=== PATIENT | female | born 1990 | race Caucasian/White ===

== ENCOUNTER 2018-05-15 23:23 | Emergency (ER) | payer OTHER ==
[~2018-05-15] VITALS: Ht 167.6 cm; Wt 77.1 kg
[2018-05-15] MEDS ORDERED: ALBUTEROL SULF 0.083% NEB SOLN 3 ML NEB NEB STA (23:41)
[2018-05-15] MEDS ORDERED: IPRATROPIUM BROMIDE 0.02% 2.5 ML NEB NEB ONE (23:45)
--- NOTE | 2018-05-16 00:52 | Diagnostic Imaging Report ---
CHEST 2 VIEWS, Technique: CHEST 2 VIEWS Comparison: None Clinical history: Cough DISCUSSION: Mild bilateral peribronchial cuffing/opacity. Otherwise normal appearance of the heart, mediastinum, and pleural spaces. IMPRESSION: Findings which can be seen with small airways disease/atypical/viral infection. Signed by: Dr Nubia Castro MD on 05/16/2018 12:49 AM
== END 2018-05-16 01:11 | disposition home or self-care (01) ==
LOC: ER 23:23
DX: R05 Cough (principal); R06.02 Shortness of breath; J20.9 Acute bronchitis, unspecified
CPT/HCPCS: 71046; 94640; 99283

== ENCOUNTER 2019-01-10 21:15 | Emergency (ER) | payer OTHER ==
[~2019-01-10] VITALS: Ht 167.6 cm; Wt 77.1 kg
--- OUTSIDE RECORDS SUMMARY | 2019-01-10 21:19 | XMS REPORT | Clinical Summary ---
Author Author [facility] [place] [employer] [facility] Address Unknown Phone Unavailable Care Team Providers Care Pc Support Specialist Name Role Phone PCP Unavailable Allergies No Known Allergies Medications End Date Status Medication Sig Dispensed Refills Start Date Active vitamin Take 1 tablet 0 w/qmaapys-qaif-zjiphn by mouth ( PLUS) 27 mg daily. iron- 1 mg Tab 11/13/2019 Active levothyroxine (SYNTHROID, Take 1 tablet 30 tablet 0 LEVOTHROID) 75 MCG tablet (75 mcg 9 total) by mouth daily. Active cholecalciferol, vitamin Take by 0 D3, 2,000 unit Cap mouth. Active clomiPHENE (CLOMID) 50 mg One- half 3 tablet 0 tablet tablet daily 9 x 3 days as directed. 08/13/2018 sertraline (ZOLOFT) 50 MG Take 1 tablet 30 tablet 1 tablet (50 mg total) 7 by mouth daily. 09/17/2018 Discontinued levothyroxine 25 mcg Cap Take 25 mcg 30 capsule 2 by mouth 8 daily. 10/15/2018 Discontinued levothyroxine (SYNTHROID, Take 1 tablet 30 tablet 1 LEVOTHROID) 50 MCG tablet (50 mcg 8 total) by mouth Every morning on an empty stomach. 11/13/2018 Discontinued levothyroxine (SYNTHROID, Take 1 tablet 30 tablet 1 LEVOTHROID) 75 MCG tablet (75 mcg 8 total) by mouth daily. 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 Resolved Problems Problem Noted Date Resolved Date Thyroid disorder 04/17/2016 12/18/2018 Overview: No current meds Encounters Care Team Description Date Type Specialty Parisa Rutledge MD Appointment 01/07/2019 Telephone Obstetrics and Parisa Ruelas MD Referral 12/30/2018 Telephone Obstetrics and Parisa Ruelas MD 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) 12/29/2018 Orders Only Obstetrics and Parisa Ruelas MD Disease of thyroid gland (Primary Dx); Low vitamin D level; Hormone disorder; Pauline's thyroiditis 12/18/2018 Office Visit Obstetrics and Parisa Ruelas MD Referral 11/20/2018 Telephone Obstetrics Parisa Rowland MD Advice Only 11/18/2018 Telephone Obstetrics and Parisa Ruelas MD Other fatigue (Primary Dx); Irregular menstrual cycle; History of irregular menstrual bleeding; Pauline's thyroiditis; Procreative counseling and advice using natural family planning; Other chronic back pain 11/16/2018 Office Visit Obstetrics Parisa Rowland MD 11/13/2018 Orders Only Obstetrics Parisa Rowland MD 11/12/2018 Refill Obstetrics Parisa Rowland MD 10/15/2018 Orders Only Obstetrics Parisa Rowland MD Thyroid disorder (Primary Dx); Pauline's thyroiditis 09/17/2018 Office Visit Obstetrics and Parisa Ruelas MD Advice Only 09/07/2018 Telephone Obstetrics and Gynecology Dinah Donato CMA 09/04/2018 Abstract Obstetrics Parisa Rowland MD 09/02/2018 Orders Only Obstetrics and Parisa Ruelas MD Advice Only 09/02/2018 Telephone Obstetrics Parisa Rowland MD Thyroid condition (Primary Dx) 09/02/2018 Orders Only Obstetrics and Parisa Ruelas MD 08/31/2018 Orders Only Obstetrics and Parisa Ruelas MD Thyroid disorder (Primary Dx); Well woman exam with routine gynecological exam 08/28/2018 Office Visit Obstetrics and Gynecology Leon Taylor MD Hematuria, unspecified type (Primary Dx) 08/18/2018 Office Visit Urology Leon Taylor MD Hematuria, unspecified type 08/18/2018 Hospital Encounter Leon Taylor MD 08/18/2018 Outside Orders after 01/09/2018 Immunizations Name Dates Previously Given Next Due Influenza TIV (IM) 07/05/2016 Tdap 09/13/2016 Family History Medical History Relation Name Comments Depression Father Breast cancer Maternal Aunt negative genetic testing Breast cancer Maternal Grandmother Heart disease Mother vsd Diabetes Paternal Aunt Diabetes Paternal Grandmother Relation Name Status Comments Father Alive Maternal Aunt Maternal Grandmother Mother Alive Paternal Aunt Paternal Grandmother Social History Date Tobacco Use Types Packs/Day Years Used Never Smoker Smokeless Tobacco: Never Used Alcohol Use Drinks/Week oz/Week Comments No Sex Assigned at Date Recorded Not on file Industry Job Start Date Occupation Not on file Not on file Not on file Travel End Travel History Travel Start No recent travel history available. Last Filed Vital Signs Time Taken Vital Sign Reading 12/18/2018 9:42 AM IT INFRASTRUCTURE ENGINEER Blood Pressure 125/84 12/18/2018 9:42 AM IT INFRASTRUCTURE ENGINEER Pulse 75 12/18/2018 9:42 AM IT INFRASTRUCTURE ENGINEER Temperature 36.8 C (98.2 F) 09/17/2018 9:58 AM IT INFRASTRUCTURE ENGINEER Respiratory Rate 18 - Oxygen Saturation - - Inhaled Oxygen - Concentration 12/18/2018 9:42 AM IT INFRASTRUCTURE ENGINEER Weight 78 kg (172 lb) 12/18/2018 9:42 AM IT INFRASTRUCTURE ENGINEER Height 165.1 cm (5' 5") 12/18/2018 9:42 AM IT INFRASTRUCTURE ENGINEER Body Mass Index 28.62 Plan of Treatment Care Team Description Date Type Specialty Tech, [facility] 01/12/2019 Office Visit Obstetrics and Gynecology Parisa Rutledge MD [address] [place] [address] [phone] 01/29/2019 Routine Obstetrics and Gynecology Procedures Comments Procedure Name Priority Date/Time Associated Diagnosis PROGESTERONE Routine 12/28/2018 9:16 AM IT INFRASTRUCTURE ENGINEER VITAMIN D, 25-HYDROXY Routine 12/18/2018 Low vitamin D level 10:23 AM IT INFRASTRUCTURE ENGINEER T3, FREE Routine 12/18/2018 Disease of thyroid gland 10:23 AM IT INFRASTRUCTURE ENGINEER T4, FREE Routine 12/18/2018 Disease of thyroid gland 10:23 AM IT INFRASTRUCTURE ENGINEER TSH Routine 12/18/2018 Disease of thyroid gland 10:23 AM IT INFRASTRUCTURE ENGINEER POCT , URINE Routine 11/16/2018 History of irregular 11:51 AM IT INFRASTRUCTURE ENGINEER menstrual bleeding DHEA SULFATE Routine 11/16/2018 Irregular menstrual cycle 11:47 AM IT INFRASTRUCTURE ENGINEER T4, FREE Routine 11/16/2018 Irregular menstrual cycle 11:47 AM IT INFRASTRUCTURE ENGINEER PROLACTIN Routine 11/16/2018 Irregular menstrual cycle 11:47 AM IT INFRASTRUCTURE ENGINEER VITAMIN D, 25-HYDROXY Routine 11/16/2018 Other fatigue 11:47 AM IT INFRASTRUCTURE ENGINEER CBC W/PLT COUNT & AUTO Routine 11/16/2018 Irregular menstrual cycle DIFFERENTIAL 11:47 AM IT INFRASTRUCTURE ENGINEER PROGESTERONE Routine 11/16/2018 Irregular menstrual cycle 11:47 AM IT INFRASTRUCTURE ENGINEER ANDROSTENEDIONE Routine 11/16/2018 Irregular menstrual cycle 11:47 AM IT INFRASTRUCTURE ENGINEER TESTOSTERONE, FREE + Routine 11/16/2018 Irregular menstrual cycle TOTAL 11:47 AM IT INFRASTRUCTURE ENGINEER TSH Routine 11/16/2018 Irregular menstrual cycle 11:47 AM IT INFRASTRUCTURE ENGINEER TSH Routine 10/14/2018 Thyroid disorder 10:16 AM IT INFRASTRUCTURE ENGINEER T4, FREE Routine 10/14/2018 Thyroid disorder 10:16 AM IT INFRASTRUCTURE ENGINEER SPECIMEN STATUS Routine 09/02/2018 10:49 AM CDT ANTI-THYROGLOBULIN Routine 09/02/2018 ANTIBODY 10:49 AM CDT THYROID PEROXIDASE (TPO) Routine 09/02/2018 ANTIBODY 10:49 AM CDT TSH Routine 08/31/[address]-NG RFX HPV ASCU AP Routine 08/28/2018 US RENAL COMPLETE STAT 08/18/2018 Hematuria, unspecified 2:30 PM CDT type after 01/09/2018 Results * PROGESTERONE (12/28/2018 9:16 AM IT INFRASTRUCTURE ENGINEER) Progesterone, Serum 1,590 ng/dL [facility] 1 Comment: Reference Range: Adult Females Cycle DaysRange 1 -6<10 - 17 7 - 12<10 - 135 13 - 15<10 - 1563 16 - 28<10 - 2555 Post Menopausal<10 Note: Luteal progesterone peaked from 350 to 3750 ng/dL on days ranging from 17 to 23. Narrative Performed At Performed at: - [employer] [facility] [address] [employer], [place] [id number] Head Teacher: Milan Bryant MD, Phone:[phone] Performing Organization Address City/State/Zipcode Phone Number [facility] * Vitamin D 25 hydroxy (12/18/2018 10:23 AM IT INFRASTRUCTURE ENGINEER) Only the most recent of 2 results within the time period is included. Vitamin D, 25-Hydroxy 26.3 (L) 30.0 - 100.0 ng/mL [facility] 1 Comment: Vitamin D deficiency has been defined by the [place] of Medicine and an Endocrine Society practice guideline as a level of serum 25-OH vitamin D less than 20 ng/mL (1,2). The Endocrine Society went on to further define vitamin D insufficiency as a level between 21 and 29 ng/mL (2). 1. IOM ([place] of Medicine). 2010. Dietary reference intakes for calcium and D. [place]: The National Academies Press. 2. Mariaelena MF, Sigrid [place], Milka ARAIZA, et al. Evaluation, treatment, and prevention of vitamin D deficiency: an Endocrine Society clinical practice guideline. JCEM. 2010; 96(7):1911-30. Specimen Blood Narrative Performed At Performed at: - [facility] [address] [place], [place] [id number] Head Teacher: James Olivarez MD, Phone:[phone] Performing Organization Address [facility] Phone Number [facility] * T3, free (12/18/2018 10:23 AM IT INFRASTRUCTURE ENGINEER) Triiodothyronine,Free,Ser 3.3 2.0 - 4.4 pg/mL [facility] 1 um Specimen Blood Narrative Performed At Performed at:[address] [place], [place] [id number] Head Teacher: James Olivarez MD, Phone:[phone] Performing Organization Address [facility] Phone Number [facility] 1 * TSH (12/18/2018 10:23 AM IT INFRASTRUCTURE ENGINEER) Only the most recent of 4 results within the time period is included. TSH 3.080 0.450 - 4.50 uIU/mL [facility] Specimen Blood Narrative Performed At Performed at:[address] [place], [place] [id number] Head Teacher: James Olivarez MD, Phone:[phone] Performing Organization Address [facility] Phone Number [facility] 1 * T4, free (12/18/2018 10:23 AM IT INFRASTRUCTURE ENGINEER) Only the most recent of 3 results within the time period is included. T4,Free(Direct) 1.64 0.82 - 1.77 ng/dL [facility] Thyroxine (T4) 9.9 4.5 - 12.0 ug/dL [facility] 1 Specimen Blood Narrative Performed At Performed at:[address] [place], [place] [id number] Head Teacher: James Olivarez MD, Phone:[phone] Performing Organization Address [facility] Phone Number [facility] * POCT , urine (11/16/2018 11:51 AM IT INFRASTRUCTURE ENGINEER) Test Urine, POC Negative Control line present?, Yes POC Background clear?, POC Yes UPT Cassette Lot #, POC [id number] UPT Cassette Expiration [id number] Date, POC * Prolactin (11/16/2018 11:47 AM IT INFRASTRUCTURE ENGINEER) Prolactin 13.3 4.8 - 23.3 ng/mL [facility] Specimen Blood Narrative Performed At Performed at:[address] [place], [place] [id number] Head Teacher: James Olivarez MD, Phone:[phone] Performing Organization Address [facility] Phone Number [facility] 1 * Progesterone (11/16/2018 11:47 AM IT INFRASTRUCTURE ENGINEER) Progesterone 0.5 ng/mL [facility] Comment: Follicular phase 0.1 - 0.9 Luteal phase 1.8 -23.9 Ovulation phase0.1 -12.0 First zccitcjax08.0 -44.3 Second trimester 25.4 -83.3 Third .7 - 214.0 Postmenopausal 0.0 - 0.1 Specimen Blood Narrative Performed At Performed at:[address] [place], [place] [id number] Head Teacher: James Olivarez MD, Phone:[phone] Performing Organization Address [facility] Phone Number [facility] 1 * DHEA Sulfate (11/16/2018 11:47 AM IT INFRASTRUCTURE ENGINEER) DHEA-Sulfate 272.9 84.8 - 378.0 ug/dL [facility] Specimen Blood Narrative Performed At Performed at:[address] [place], [place] [id number] Head Teacher: James Olivarez MD, Phone:[phone] Performing Organization Address [facility] Phone Number [facility] 1 * Androstenedione (11/16/2018 11:47 AM IT INFRASTRUCTURE ENGINEER) Androstenedione LCMS 123 41 - 262 ng/dL [facility] Comment: This test was developed and its performance characteristics determined by [facility]. It has not been cleared or approved by the Food and Drug Administration. Specimen Blood Narrative Performed At Performed at:[address] [place], [place] [address] [place], [id number] Head Teacher: Silas Orellana MD, Phone:[phone] Performing Organization Address [facility] Phone Number [facility] 1 * CBC W/ PLT COUNT AUTO DIFFERENTIAL (11/16/2018 11:47 AM IT INFRASTRUCTURE ENGINEER) WBC 6.7 3.4 - 10.8 x10E3/uL [facility] 1 RBC 4.84 3.77 - 5.28 x10E6/uL [facility] 1 Hemoglobin 14.8 11.1 - 15.9 g/dL [facility] 1 Hematocrit 43.1 34.0 - 46.6 % [facility] 1 MCV 89 79 - 97 fL [facility] 1 MCH 30.6 26.6 - 33.0 pg [facility] 1 MCHC 34.3 31.5 - 35.7 g/dL [facility] 1 RDW 13.1 12.3 - 15.4 % [facility] 1 Platelets 405 (H) 150 - 379 x10E3/uL [facility] 1 % Neutros 55 Not Estab. % [facility] 1 % Lymphs 34 Not Estab. % [facility] 1 % Monos 8 Not Estab. % [facility] 1 % Eos 2 Not Estab. % [facility] % Baso 1 Not Estab. % [facility] # Neutros 3.7 1.4 - 7.0 x10E3/uL [facility] # Lymphs 2.3 0.7 - 3.1 x10E3/uL [facility] 1 # Monos 0.6 0.1 - 0.9 x10E3/uL [facility] 1 # Eos 0.2 0.0 - 0.4 x10E3/uL [facility] 1 Baso (Absolute) 0.1 0.0 - 0.2 x10E3/uL [facility] 1 % Immature Grans 0 Not Estab. % [facility] 1 # Immature Grans 0.0 0.0 - 0.1 x10E3/uL [facility] 1 Specimen Blood Narrative Performed At Performed at:01 - [facility] [address] [place], [id number] Head Teacher: James Olivarez MD, Phone:[phone] Performing Organization Address City/State/Zipcode Phone Number [facility] 1 * Testosterone, free + total (11/16/2018 11:47 AM IT INFRASTRUCTURE ENGINEER) Testosterone, Serum 36 8 - 48 ng/dL [facility] 1 Free Testosterone(Direct) 1.4 0.0 - 4.2 pg/mL [facility] 2 Specimen Blood Narrative Performed At Performed at: [id number] Head Teacher: James Olivarez MD, Phone:[phone] Performed at: [id number] Head Teacher: Silas Orellana MD, Phone:[phone] Performing Organization Address [facility] Phone Number [facility] * SPECIMEN STATUS (09/02/2018 10:49 AM CDT) Specimen Status Comment [facility] 1 Comment: Written Authorization Written Authorization Written Authorization Received. Authorization received from PARISA RUTLEDGE 09-08-2018 Logged by Nirmala Bland Narrative Performed At Performed at:[address] [place], [place] [id number] Head Teacher: James Olivarez MD, Phone:[phone] Performing Organization Address [facility] Phone Number [facility] * Thyroid peroxidase (TPO) antibody (09/02/2018 10:49 AM CDT) Thyroid Peroxidase (TPO) 167 (H) 0 - 34 IU/mL [facility] 1 Ab Narrative Performed At Performed at:[address] [place], [place] [id number] Head Teacher: James Olivarez MD, Phone:[phone] Performing Organization Address [facility] Phone Number [facility] * Anti-thyroglobulin antibody (09/02/2018 10:49 AM CDT) Thyroglobulin Ab <1.0Comment: Thyroglobulin 0.0 - 0.9 IU/mL [facility] 1 Antibody measured by Leno Shweta Methodology Narrative Performed At Performed at:[address] [place], [place] [id number] Head Teacher: James Olivarez MD, Phone:[phone] Performing Organization Address [facility] Phone Number [facility] 1 * PAP IG CT-NG RFX HPV ASCU (08/28/2018) Pap Negative for intraephithelial EXTERNAL LAB lesion or malignancy Narrative Performed At Performing Organization Address City/State/Zipcode Phone Number EXTERNAL LAB * US renal complete (08/18/2018 2:30 PM CDT) Narrative Performed At FINAL REPORT [facility] History: Hematuria. FINDINGS: Correlation is made with patient's previous study performed September 08, 2016. Real-time sonographic examination reveals normal size kidneys measuring up to 10.6 x 4.3 x 5.1 and 11.6 x 4.6 x 5.3 cm in greatest dimensions on the right and left, respectively. Renal echogenicity appears normal. There are no sonographically detectable masses, cysts, stones or evidence for obstruction. Previously described mild bilateral hydronephrosis has resolved. Renal cortical thickness measures 10 mm on the right and 11 mm on the left. The urinary bladder is unremarkable with an estimated volume of 280 cc. IMPRESSION: 1. Normal renal sonogram. Bilateral hydronephrosis identified on the previous study performed September 2016 has resolved. Signed: Melisa Haro MD Report Verified Date/Time:08/18/2018 14:27:54 Reading Location: [facility] Radiology Reading Room Procedure Note Interface, External Ris In - 08/18/2018 2:55 PM CDT FINAL REPORT History: Hematuria. FINDINGS: Correlation is made with patient's previous study performed September 08, 2016. Real-time sonographic examination reveals normal size kidneys measuring up to 10.6 x 4.3 x 5.1 and 11.6 x 4.6 x 5.3 cm in greatest dimensions on the right and left, respectively. Renal echogenicity appears normal. There are no sonographically detectable masses, cysts, stones or evidence for obstruction. Previously described mild bilateral hydronephrosis has resolved. Renal cortical thickness measures 10 mm on the right and 11 mm on the left. The urinary bladder is unremarkable with an estimated volume of 280 cc. IMPRESSION: 1. Normal renal sonogram. Bilateral hydronephrosis identified on the previous study performed September 2016 has resolved. Signed: Melisa Haro MD Report Verified Date/Time: 08/18/2018 14:27:54 Reading Location: [facility] Radiology Reading Room Performing Organization Address City/State/Zipcode Phone Number GE RIS after 01/09/2018 Insurance Payer Benefit Subscriber ID Type Phone Address Plan / Group AETNA - [employer] AETNA HMO xxxxxxxxxx HMO/POS POS QPOS Advance Directives For more information, please contact: [facility] [address] [place] [address] Date Inactivated Comments Code Status Date Activated 12/02/2016 4:05 PM Full Code 11/29/2016 12:59 PM This code status was determined by: Patient 11/14/2016 7:13 PM Full Code 11/14/2016 1:42 PM This code status was determined by: Patient 11/10/2016 4:11 AM Full Code 11/10/2016 1:22 AM This code status was determined by: Patient 11/06/2016 7:47 PM Full Code 11/06/2016 4:26 PM This code status was determined by: Patient 09/09/2016 3:02 PM Full Code 09/08/2016 9:53 AM This code status was determined by: Patient
--- OUTSIDE RECORDS SUMMARY | 2019-01-10 21:19 | XMS REPORT ---
Author Author [facility] Address Unknown Phone Unavailable Care Team Providers Care Cable Tool Driller Name Role Phone JERED Sharron MORGAN Unavailable Unavailable Problems This patient has no known problems. Allergies, Adverse Reactions, Alerts This patient has no known allergies or adverse reactions. Medications This patient has no known medications. Results Test Description Test Time Test Comments Text Results Atomic Results Result Comments U/S, RENAL, COMPLETE 2018-08-18 14:27:00 [facility] for Exam:->history of hematuria FINAL REPORT History: Hematuria. FINDINGS: Correlation is [...] performed September 2016 has resolved. Signed: Melisa Mckeon Verified Date/Time: 08/18/2018 14:27:54 Reading Location: [facility] Radiology Reading Room T 2 VIEWS 2018-05-16 00:48:[address] [address] Patient Name: SUELLEN OVIEDO MR #: [id number] : 1990 Age/Sex: 28/F Req #: [id number] Adm Physician: Ordered by: CATHY LAWTON MD Report #: [id number] Location: ER Room/Bed: Procedure: [id number] DX/CHEST 2 VIEWS Exam Date: 05/16/18 Exam Time: 34 REPORT STATUS: Signed CHEST 2 VIEWS, Technique: CHEST 2 VIEWS Comparison: None Clinical history: Cough DISCUSSION: Mild bilateral peribronchial cuffing/opacity. Otherwise normal appearance of the heart, mediastinum, and pleural spaces. IMPRESSION: Findings which can be seen with small airways disease/atypical/viral infection. Signed by: Dr Judd Castro MD on 05/16/2018 12:49 AM Dictated By: JUDD CASTRO MD Transcribed By: KAYKAY on 05/16/1848 COPY TO: CATHY LAWTON MD
[2019-01-10 22:17] LABS: BASOPHILS # (AUTO) 0.1 (0.0-0.1); BASOPHILS % 0.8 % (0.0-1.0); EOSINOPHILS # (AUTO) 0.2 (0.0-0.4); EOSINOPHILS % 1.8 % (0.0-6.0); HEMATOCRIT 40.2 % (34.2-44.1); HEMOGLOBIN 13.5 g/dL (12.0-16.0); LYMPHOCYTES # (AUTO) 3.4 (1.0-3.2); LYMPHOCYTES % 41.2 % (18.0-39.1); MEAN CORPUSCULAR HEMOGLOBIN 30.1 pg (28-32); MEAN CORPUSCULAR HGB CONC 33.6 g/dL (31-35); MEAN CORPUSCULAR VOLUME 89.5 fL (81-99); MONOCYTES # (AUTO) 0.7 (0.2-0.8); MONOCYTES % 8.7 % (4.4-11.3); NEUTROPHILS # (AUTO) 3.9 (2.1-6.9); NEUTROPHILS % 47.3 % (38.7-80.0); PLATELET COUNT 456 x10e3/uL (140-360); RED BLOOD COUNT 4.49 x10e6/uL (3.6-5.1); RED CELL DISTRIBUTION WIDTH 12.1 % (11.7-14.4)
[2019-01-10 22:28] LABS: ALANINE AMINOTRANSFERASE 9 IU/L (0-55); ALBUMIN 3.9 g/dL (3.5-5.0); ALBUMIN/GLOBULIN RATIO 1.1 (0.8-2.0); ALKALINE PHOSPHATASE 64 IU/L (40-150); ANION GAP 12.1 mmol/L (8-16); BLOOD UREA NITROGEN 11 mg/dL (7-26); BUN/CREATININE RATIO 14 (6-25); CALCIUM 9.7 mg/dL (8.4-10.2); CARBON DIOXIDE 25 mmol/L (22-29); CHLORIDE 101 mmol/L (98-107); CREATININE, SERUM 0.78 mg/dL (0.57-1.11); EST GLOMERULAR FILTRATION RATE > 60 ML/MIN (60-); GLUCOSE 94 mg/dL (74-118); POTASSIUM 4.1 mmol/L (3.5-5.1); SODIUM 134 mmol/L (136-145)
[2019-01-10 23:27] LABS: BILIRUBIN,URINE NEGATIVE (NEGATIVE); CLARITY,URINE CLEAR (CLEAR); COLOR,URINE YELLOW (YELLOW); KETONES,URINE NEGATIVE (NEGATIVE); LEUKOCYTE ESTERASE ,URINE NEGATIVE (NEGATIVE); NITRITE,URINE NEGATIVE (NEGATIVE); PROTEIN,URINE DIPSTICK NEGATIVE (NEGATIVE); URINE UROBILINOGEN 0.2 mg/dL (0.2 - 1)
[2019-01-10 23:28] LABS: PREGNANCY TEST, URINE NEGATIVE (NEGATIVE)
[2019-01-10 23:52] LABS: BACTERIA,URINE FEW /HPF; EPITHELIAL CELLS,URINE FEW /LPF
--- NOTE | 2019-01-11 01:04 | Diagnostic Imaging Report ---
EXAM: CT Abdomen and Pelvis WITHOUT contrast INDICATION: R/O KIDNEY STONE COMPARISON: None. TECHNIQUE: Abdomen and pelvis were scanned utilizing a multidetector helical scanner from the lung base to the pubic symphysis without administration of IV contrast. Absence of intravenous contrast decreases sensitivity for detection of focal lesions and vascular pathology. Coronal and sagittal reformations were obtained. Routine protocol was performed. IV CONTRAST: None ORAL CONTRAST: Water COMPLICATIONS: None RADIATION DOSE: Total DLP: 367.9 mGy*cm Estimated effective dose: (DLP x 0.015 x size factor) mSv CTDIvol has been reviewed. It is below the limits set by the Radiation Protocol Committee (RPC). FINDINGS: LINES and TUBES: None. LOWER THORAX: Unremarkable HEPATOBILIARY: No focal hepatic lesions. No biliary ductal dilation. GALLBLADDER: Contracted. No radio-opaque stones or sludge. No wall thickening. SPLEEN: No splenomegaly. PANCREAS: No focal masses or ductal dilatation. ADRENALS: No adrenal nodules KIDNEYS/URETERS: No hydronephrosis. No cystic or solid mass lesions. No stones. GI TRACT: No abnormal distention, wall thickening, or evidence of bowel obstruction. Appendix is normal. PELVIC ORGANS/BLADDER: Left ovarian 4.2 cm cyst. Tampon in place. LYMPH NODES: No lymphadenopathy. VESSELS: Unremarkable. PERITONEUM / RETROPERITONEUM: No free air or fluid. BONES: Unremarkable. SOFT TISSUES: Unremarkable. IMPRESSION: 1. No acute noncontrast CT abnormalities. 2. No urolithiasis or hydronephrosis. Signed by: DR. Rodrigo Sanchez MD on 01/11/2019 12:58 AM
[2019-01-11 02:00] VITALS: BP 114/82
[2019-01-11] MEDS ORDERED: MACROBID 100 M100 MG PO (02:00)
== END 2019-01-11 02:06 | disposition home or self-care (01) ==
LOC: ER 21:15
DX: M54.5 Low back pain (principal); R35.0 Frequency of micturition; N30.91 Cystitis, unspecified with hematuria; J45.909 Unspecified asthma, uncomplicated; E07.9 Disorder of thyroid, unspecified
CPT/HCPCS: 36415; 74176; 80053; 81001; 81025; 85025; 87086; 93005; 99284

== ENCOUNTER 2019-03-07 11:27 | Emergency (ER) | payer OTHER ==
[~2019-03-07] VITALS: Ht 167.6 cm; Wt 77.1 kg
[~2019-03-07 11:27] MED LIST: MACROBID 100 M100 MG PO
--- OUTSIDE RECORDS SUMMARY | 2019-03-07 11:30 | XMS REPORT | Clinical Summary ---
Author Author [facility] Address Unknown Phone Unavailable Care Team Providers Care Bond Underwriter Name Role Phone PCP Unavailable Allergies No Known Allergies Medications End Date Status Medication Sig Dispensed Refills Start Date Active vitamin Take 1 tablet 0 w/ndqewxh-gagx-gtpunm by mouth ( PLUS) 27 mg daily. iron- 1 mg Tab Active cholecalciferol, vitamin Take by 0 D3, 2,000 unit Cap mouth. Active metFORMIN (GLUCOPHAGE-XR) 2 500 MG 24 hr tablet 9 Active levothyroxine (SYNTHROID, 2 LEVOTHROID) 100 MCG 9 tablet 03/13/2019 Active ibuprofen (ADVIL,MOTRIN) Take 1 tablet 40 tablet 0 800 MG tablet (800 mg 9 total) by mouth every 6 (six) hours as needed for Pain for up to 10 days. Active HYDROcodone-acetaminophen One po every 20 tablet 0 (NORCO 5-325) 5-325 mg 6 hours prn 9 per tablet pain. 08/13/2018 sertraline (ZOLOFT) 50 MG Take 1 [...] (75 mcg 8 total) by mouth daily. 01/11/2019 Discontinued levothyroxine (SYNTHROID, Take 1 tablet 30 tablet 0 LEVOTHROID) 75 MCG tablet (75 mcg 9 total) by mouth daily. 01/29/2019 Discontinued clomiPHENE (CLOMID) 50 mg One- half 3 tablet 0 tablet tablet daily 9 x 3 days as directed. 02/26/2019 Discontinued levothyroxine (SYNTHROID, TAKE 1 30 tablet 0 LEVOTHROID) 75 MCG tablet TABLET(75 9 MCG) BY MOUTH DAILY 02/16/2019 Discontinued progesterone (PROMETRIUM) Two po qhs x 20 capsule 3 200 MG capsule 10 days each 9 month as directed. 03/03/2019 Discontinued progesterone (PROMETRIUM) Two po qhs. 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 Comments Yes Resolved Problems Problem Noted Date Resolved Date Thyroid disorder 04/17/2016 12/18/2018 Overview: No current meds Encounters Care Team Description Date Type Specialty Parisa Rutledge MD Advice Only 03/05/2019 Telephone Obstetrics and Gynecology Parisa Rutledge MD Results 03/03/2019 Telephone Obstetrics and Gynecology Parisa Rutledge MD Advice Only 03/03/2019 Telephone Obstetrics and Gynecology Parisa Rutledge MD Appointment 03/03/2019 Telephone Obstetrics and Gynecology Joaquin Erazo MD 03/02/2019 Anesthesia Event Parisa Rutledge MD SALPINGECTOMY 03/02/2019 Surgery Holden Loaiza MD Karges, Kathryn Anne, MD Right ovarian without intrauterine (Primary Dx); Right tubal without intrauterine 03/02/2019 Emergency General Internal Medicine - 03/03/2019 Parisa Rutledge MD Right tubal without intrauterine (Primary Dx); Abnormal human chorionic gonadotropin (hCG) 03/02/2019 Office Visit Obstetrics and Gynecology 03/02/2019 Travel Parisa Rutledge MD Abnormal human chorionic gonadotropin (hCG) (Primary Dx) 03/02/2019 Outside Orders Central Scheduling Parisa Rutledge MD 03/01/2019 Routine Obstetrics and Gynecology Abnormal blood chemistry 02/26/2019 Hospital Encounter Parisa Rutledge MD Abnormal blood chemistry 02/26/2019 Hospital Encounter Parisa Rutledge MD 02/26/2019 Routine Obstetrics and Gynecology Parisa Rutledge MD Abnormal blood chemistry (Primary Dx) 02/26/2019 Outside Orders Parisa Rutledge MD Advice Only 02/19/2019 Telephone Obstetrics and Gynecology Parisa Rutledge MD Amenorrhea (Primary Dx) 02/17/2019 Orders Only Obstetrics and Gynecology Parisa Rutledge MD Vaginal Bleeding 02/17/2019 Telephone Obstetrics and Gynecology Parisa Rutledge MD Amenorrhea (Primary Dx); White coat syndrome with high blood pressure without hypertension; Pauline's thyroiditis; History of nephrolithiasis; History of irregular menstrual cycles 02/16/2019 Office Visit Obstetrics trudy Gynecology Parisa Rutledge MD 02/16/2019 Orders Only Obstetrics and Gynecology Parisa Rutledge MD New OB intake 02/15/2019 Telephone Obstetrics and Gynecology Bozena Hudson MD Cyst of ovary, unspecified laterality (Primary Dx) 02/04/2019 Office Visit Obstetrics and Gynecology Parisa Rutledge MD History of ovarian cyst (Primary Dx); Pauline's thyroiditis; History of irregular menstrual cycles 01/29/2019 Office Visit Obstetrics and Gynecology Parisa Rutledge MD Irregular periods/menstrual cycles (Primary Dx) 01/12/2019 Office Visit Obstetrics and Gynecology Parisa Rutledge MD Advice Only 01/12/2019 Telephone Obstetrics and Gynecology Parisa Rutledge MD 01/11/2019 Refill Obstetrics and Gynecology Parisa Rutledge MD Appointment 01/07/2019 Telephone Obstetrics and Gynecology Parisa Rutledge MD Referral 12/30/2018 Telephone Obstetrics and Gynecology Parisa Rutledge MD 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) 12/29/2018 Orders Only Obstetrics and Parisa Ruelas MD Disease of thyroid gland (Primary Dx); Low vitamin D level; Hormone disorder; Pauline's thyroiditis 12/18/2018 Office Visit Obstetrics and Parisa Ruelas MD Referral 11/20/2018 Telephone Obstetrics and Parisa Ruelas MD Advice Only 11/18/2018 Telephone Obstetrics and Parisa Ruelas MD Other fatigue (Primary Dx); Irregular menstrual cycle; History of irregular menstrual bleeding; Pauline's thyroiditis; Procreative counseling and advice using natural family planning; Other chronic back pain 11/16/2018 Office Visit Obstetrics and Parisa Ruelas MD 11/13/2018 Orders Only Obstetrics Parisa Rowland MD 11/12/2018 Refill Obstetrics Parisa Rowland MD 10/15/2018 Orders Only Obstetrics and Parisa Ruelas MD Thyroid disorder (Primary Dx); Pauline's thyroiditis; Ectopic , unspecified location, unspecified whether intrauterine present 09/17/2018 Office Visit Obstetrics and Parisa Ruelas MD Advice Only 09/07/2018 Telephone Obstetrics and Gynecology Dinah Donato CMA 09/04/2018 Abstract Obstetrics and Parisa Ruelas MD 09/02/2018 Orders Only Obstetrics and Parisa Ruelas MD Advice Only 09/02/2018 Telephone Obstetrics and Parisa Ruelas MD Thyroid condition (Primary Dx) 09/02/2018 Orders [...] Leon Taylor MD 08/18/2018 Outside Orders after 03/06/2018 Immunizations Name Dates Previously Given Next Due [...] Used Alcohol Use Drinks/Week oz/Week Comments No Comments Yes Sex Assigned at Date Recorded Not on file Industry Job Start Date Occupation Not on file Not on file Not on file Travel End Travel History Travel Start No recent travel history available. Last Filed Vital Signs Time Taken Vital Sign Reading 03/03/2019 4:11 AM CDT Blood Pressure 105/63 03/03/2019 4:11 AM CDT Pulse 100 03/03/2019 4:11 AM CDT Temperature 37.2 C (98.9 F) 03/03/2019 4:11 AM CDT Respiratory Rate 18 03/03/2019 4:11 AM CDT Oxygen Saturation 99% - Inhaled Oxygen - Concentration 03/02/2019 6:28 PM CDT Weight 77.1 kg (170 lb) 03/02/2019 6:28 PM CDT Height 165.1 cm (5' 5") 03/02/2019 6:28 PM CDT Body Mass Index 28.29 Plan of Treatment Care Team Description Date Type Specialty Parisa Rutledge MD [address] [facility] [address] [place] [address] [phone] Amenorrhea 03/12/2019 Office Visit Obstetrics and Gynecology Parisa Rutledge MD [address] [facility] [address] [place] [address] [phone] 03/18/2019 Office Visit Obstetrics and Gynecology Procedures Comments Procedure Name Priority Date/Time Associated Diagnosis HCG, QUANTITATIVE, Routine 03/05/2019 Ectopic , 1:08 PM CDT unspecified location, unspecified whether intrauterine present TRANSFUSION SERVICE 03/04/2019 REPORT - SCAN 6:05 PM CDT TRANSFUSION SERVICE 03/03/2019 REPORT - SCAN 6:07 PM CDT ANTIBODY IDENTIFICATION STAT 03/03/2019 5:00 PM CDT TISSUE EXAM AP Routine 03/02/2019 8:41 PM CDT SALPINGECTOMY 03/02/2019 Ectopic , 7:00 PM CDT unspecified location, unspecified whether intrauterine present Special Needs IN ERASSIST CONFIRMED WITH [facility],OPERATIVE 03/02/2019 Ectopic , 7:00 PM CDT unspecified location, unspecified whether intrauterine present Special Needs IN [place]SI[place] CONFIRMED WITH [facility],ECTOPIC 03/02/2019 Ectopic , REMOVAL 7:00 PM CDT unspecified location, unspecified whether intrauterine present Special Needs IN [place]SIST CONFIRMED WITH [facility] CBC W/PLT COUNT & AUTO STAT 03/02/2019 DIFFERENTIAL 6:49 PM CDT ABORH, MANUAL STAT 03/02/2019 6:49 PM CDT TYPE AND SCREEN, STAT 03/02/2019 AUTOMATED 6:49 PM CDT BASIC METABOLIC PANEL (7) STAT 03/02/2019 6:49 PM CDT CBC W/PLT COUNT & AUTO STAT 03/02/2019 DIFFERENTIAL 6:49 PM CDT US OB TRANSVAGINAL Routine 03/02/2019 Right tubal 4:35 PM CDT without intrauterine US OB TRANSVAGINAL Routine 03/01/2019 , location 4:48 PM CDT unknown Abnormal human chorionic gonadotropin (hCG) HCG, QUANTITATIVE, STAT 03/01/2019 , location 10:59 AM CDT unknown US OB TRANSVAGINAL Routine 02/26/2019 Amenorrhea 1:07 PM CDT Abnormal human chorionic gonadotropin (hCG) HCG, QUANTITATIVE, STAT 02/26/2019 Amenorrhea 12:24 PM CDT Abnormal human chorionic gonadotropin (hCG) US ENDOVAGINAL EV Routine 02/26/2019 12:00 PM CDT US FIRST Routine 02/26/2019 Abnormal blood chemistry TRIMESTER 12:00 PM CDT HCG, QUANTITATIVE, Routine 02/24/2019 Amenorrhea 9:30 AM CDT HCG, QUANTITATIVE, Routine 02/22/2019 Amenorrhea 9:56 AM CDT HCG, QUANTITATIVE, Routine 02/18/2019 Amenorrhea 8:42 AM CDT HCG, QUANTITATIVE, Routine 02/16/2019 Amenorrhea 1:34 PM CDT PROGESTERONE Routine 02/16/2019 Amenorrhea 1:34 PM CDT T4, FREE Routine 02/16/2019 Amenorrhea 1:34 PM CDT TSH Routine 02/16/2019 Amenorrhea 1:34 PM CDT POCT AMB URINE DIPSTICK Routine 02/16/2019 Amenorrhea 11:59 AM CDT POCT , URINE Routine 02/16/2019 Amenorrhea 11:52 AM CDT US PELVIC BLADDER ONLY Routine 02/05/2019 Cyst of ovary, 10:12 AM CDT unspecified laterality US PELVIC BLADDER ONLY Routine 01/29/2019 History of ovarian cyst 12:41 PM CDT US PELVIC BLADDER ONLY Routine 01/12/2019 Irregular 4:24 PM CDT periods/menstrual cycles PROGESTERONE Routine 12/28/2018 9:16 AM TRANSCRIPTION TYPIST VITAMIN D, 25-HYDROXY Routine 12/18/2018 Low vitamin D level 10:23 AM TRANSCRIPTION TYPIST T3, FREE Routine 12/18/2018 Disease of thyroid gland 10:23 AM TRANSCRIPTION TYPIST T4, FREE Routine 12/18/2018 Disease of thyroid gland 10:23 AM TRANSCRIPTION TYPIST TSH Routine 12/18/2018 Disease of thyroid gland 10:23 AM TRANSCRIPTION TYPIST POCT , URINE Routine 11/16/2018 History of irregular 11:51 AM TRANSCRIPTION TYPIST menstrual bleeding DHEA SULFATE Routine 11/16/2018 Irregular menstrual cycle 11:47 AM TRANSCRIPTION TYPIST T4, FREE Routine 11/16/2018 Irregular menstrual cycle 11:47 AM TRANSCRIPTION TYPIST PROLACTIN Routine 11/16/2018 Irregular menstrual cycle 11:47 AM TRANSCRIPTION TYPIST VITAMIN D, 25-HYDROXY Routine 11/16/2018 Other fatigue 11:47 AM TRANSCRIPTION TYPIST CBC W/PLT COUNT & AUTO Routine 11/16/2018 Irregular menstrual cycle DIFFERENTIAL 11:47 AM TRANSCRIPTION TYPIST PROGESTERONE Routine 11/16/2018 Irregular menstrual cycle 11:47 AM TRANSCRIPTION TYPIST ANDROSTENEDIONE Routine 11/16/2018 Irregular menstrual cycle 11:47 AM TRANSCRIPTION TYPIST TESTOSTERONE, FREE + Routine 11/16/2018 Irregular menstrual cycle TOTAL 11:47 AM TRANSCRIPTION TYPIST TSH Routine 11/16/2018 Irregular menstrual cycle 11:47 AM TRANSCRIPTION TYPIST TSH Routine 10/14/2018 Thyroid disorder 10:16 AM TRANSCRIPTION TYPIST T4, FREE Routine 10/14/2018 Thyroid disorder 10:16 AM TRANSCRIPTION TYPIST SPECIMEN STATUS Routine 09/02/2018 10:49 AM CDT ANTI-THYROGLOBULIN Routine 09/02/2018 ANTIBODY 10:49 AM CDT THYROID PEROXIDASE (TPO) Routine 09/02/2018 ANTIBODY 10:49 AM CDT TSH Routine 08/31/[address]-NG RFX HPV ASCU AP Routine 08/28/2018 US RENAL COMPLETE STAT 08/18/2018 Hematuria, unspecified 2:30 PM CDT type after 03/06/2018 Results * hCG, quantitative, (03/05/2019 1:08 PM CDT) Only the most recent of 7 results within the time period is included. hCG,Beta 425 mIU/mL [facility] 1 Subunit,Qnt,Serum Comment: Female (Non-)0 - 5 (Pos tmenopausal)0 - 8 Female () Weeks of Gestation 3 6 -71 4 10 - 750 52 17 7145 61 58 - 53959 7 [phone] -[phone] 10 92248 -[phone] 12 63256 -[phone] 14 68066 - 39820 15 18187 - 18653 16 4253 - 58953 17 8517 - 42222 18 8694 - [phone] Naz ECLIA methodology Specimen Blood Narrative Performed At Performed at: - [facility] [address] [place], [place] [id number] Investment Associate: James Olivarez MD, Phone:[phone] Performing Organization Address City/State/Zipcode Phone Number [facility] * TRANSFUSION SERVICE REPORT - SCAN (03/04/2019 6:05 PM CDT) Only the most recent of 2 results within the time period is included. Narrative Performed At * Antibody identification (03/03/2019 5:00 PM CDT) ANTIBODY ID (SYLVIA) Anti-Bg [place] Anti-E Comment: Testing performed by: [facility], [address] [place] [id number] Antibody Consult SIGNED OUTComment: Anti E [place] causes RBC injury, transfuse E negative RBCs. History of anti-Bg.Electronic Signature: Mony Zavala M.D. Specimen Performing Organization Address City/[facility] Phone Number [place] * Tissue Exam (03/02/2019 8:41 PM CDT) Case Report Surgical Pathology [place] Report LABORATORY Case: [id number] Authorizing Provider:Parisa Rutledge MD Collected: 03/02/20192040 Ordering Location: [facility] PERIOPERATIVE Received: 03/03/2019 0829 SERVICES Pathologist: Abhinav Brewer MD Specimen:RT Fallopian Tube, Right Fallopian Tube DIAGNOSIS RIGHT FALLOPIAN TUBE, [place] EXCISION: LABORATORY - ECTOPIC Signing Pathologist Direct Phone Line: [phone] CPT Code(s) SQ/ew [place] [address] LABORATORY CLINICAL HISTORY Ectopic [place] [facility] SPECIMEN SOURCE Right fallopian tube [place] [facility] GROSS DESCRIPTION Received in formalin [place] designated "right fallopian LABORATORY tube" is a light-loaiza fallopian tube segment measuring 2 cm in length and 0.7 cm in width along with two pieces of loaiza-red soft tissue measuring 1.3 x 0.7 x 0.3 cm in aggregate. Upon sectioning, a lumen is identified with no significant hemorrhage or dilatation. The entire specimen is sectioned and submitted in cassettes A1 and A2. SQ/ew MICROSCOPIC DESCRIPTION Sections from the fallopian [place] [facility] tube reveal a lumen lined by LABORATORY tubal type epithelium. Detached pieces of chorionic villi are identified mixed with blood clots. Features of malignancy are not identified. SQ/ew Specimen Tissue Narrative Performed At Performing Organization Address City/[facility]/Zipcode Phone Number [place] [facility] [place] [address] * Type and screen, automated (03/02/2019 6:49 PM CDT) ABOR O POSITIVE [facility] Antibody Screen POSITIVE [facility] Specimen Blood Performing Organization Address City/[facility] Hospitalcode Phone Number [place] [phone] [place] [address] HOSPITAL * ABORH, manual (03/02/2019 6:49 PM CDT) ABO Grouping OComment: Testing performed [facility] by: [facility], [address] [place] [id number] Rh Factor POSComment: Testing performed [facility] by: [facility], [address] [place] [id number] Specimen Blood Performing Organization Address City/[facility] Hospitalcode Phone Number [address] [place] [address] [facility] * CBC with platelet count + automated diff (03/02/2019 6:49 PM CDT) WBC 11.1 (H) 4.0 - 10.0 K/L [place] [facility] LABORATORY RBC 4.58 4.00 - 5.00 M/L [place] [facility] LABORATORY Hemoglobin 13.5 12.0 - 15.5 GM/DL [place] [facility] LABORATORY Hematocrit 40.6 36.0 - 46.0 % [place] [facility] LABORATORY MCV 88.6 82.0 - 99.0 fL [place] [facility] LABORATORY MCH 29.5 27.0 - 33.0 pg [place] [facility] LABORATORY MCHC 33.3 32.0 - 36.0 GM/DL [place] [facility] LABORATORY RDW 12.2 12.0 - 15.0 % [place] [facility] LABORATORY Platelets 383 150 - 430 K/CU MM [place] [facility] LABORATORY MPV 9.3 6.0 - 11.5 fL [place] [facility]ORAT[facility] % Neutros 69 % [place] [facility] % Lymphs 22 % [place] [facility] LABORATORY % Monos 7Comment: This is a corrected % [place] result. Previous result was LABORATORY 734 % on 03/02/2019 at 1905 CDT % Eos 1 % [place] [facility] LABORATORY % Baso 1 % [place] [facility] LAB[facility]AT[facility] # Neutros 7.60 1.80 - 8.00 K/L [place] [facility] # Lymphs 2.46 1.48 - 4.50 K/L [place] [facility] # Monos 0.82 0.00 - 1.30 K/L [place] [facility] # Eos 0.10 0.00 - 0.50 K/L [place] [facility] # Baso 0.07 0.00 - 0.20 K/L [place] [facility] Specimen Blood Performing Organization Address City/State/Zipcode Phone Number [place] [facility] [address] [place] [address] * Basic metabolic panel (Na, K+, Cl, CO2, Glu, Ca, BUN, Cr) (03/02/2019 6:49 PM CDT) Sodium 138 135 - 148 meq/L [place] [facility] Potassium 4.3Comment: Specimen 3.6 - 5.5 meq/L [facility] moderately hemolyzed LABORATORY Chloride 103 98 - 106 meq/L [place] [facility] CO2 20 20 - 29 meq/L [place] [facility] BUN 7 (L) 10 - 26 mg/dL [place] [facility] LABORATORY Creatinine 0.79Comment: Specimen 0.50 - 1.20 mg/dL [place] moderately hemolyzed LABORATORY Glucose 88 70 - 110 mg/dL [place] [facility] LABORATORY Calcium 9.1 8.5 - 10.5 mg/dL [place] [facility] LABORATORY EGFR 87Comment: ESTIMATED GFR IS mL/min/1.73 sq m [place] NOT ACCURATE CREATININE LABORATORY CLEARANCE IN PREDICTING GLOMERULAR FILTRATION RATE. ESTIMATED GFR IS NOT APPLICABLE FOR DIALYSIS PATIENTS. Specimen Blood Performing Organization Address City/State/Zipcode Phone Number [place] [facility] [address] [place] [address] * TVP - OB transvaginal Ultrasound (03/02/2019 4:35 PM CDT) Only the most recent of 3 results within the time period is included. Biparietal Diameter mm Abdominal Circumference mm Femoral Diameter cm Head Circumference mm HC/AC Estimated Weight grams Narrative Performed At [facility] 1992 03/02/19 Right ovary appears to have a corpus luteal cyst. Adjacent to the right ovary there is a well circumscribed mass seen. Yolk sac and CRL within. Crl: 4.5mm Yolk sac: 2.7 mm Fht: 113 bpm * US First Trimester (02/26/2019 12:00 PM CDT) Specimen Narrative Performed At FINAL REPORT [facility] Pelvis ultrasound, Clinical History: Positive test, 6 weeks by date Discussion: Sonographic evaluation of the pelvis is performed transabdominally and transvaginally. Jimenes scale, color Doppler, spectral wave form analysis of the ovarian vasculature was performed. The uterus is 8.0 x 4.7 x 5.1 cm and demonstrates homogeneous echotexture, without focal mass. The endometrial echocomplex is thickened and somewhat heterogeneous, measuring up to 2 cm. A small cystic collection is identified in the fundal region of the endometrial cavity. This does not have the appearance of a normal gestational sac. It measures about 0.7 x 0.3 x 1.2 cm. This could represent a deformed gestational sac or small amount of nonspecific fluid. There is no pole or yolk sac within this structure. The right ovary measures 4.5 x 2.1 x 4.5 cm. There is a cystic structure inseparable from the right ovary measuring about 2.3 x 1.4 x 1.6 cm. There is no pole or yolk sac within this structure. There is small amount of debris. There appears to be ovarian tissue surrounding this structure. Overall this is more suggestive of a complex corpus gluteal cyst rather than an ectopic . The right ovary demonstrates normal arterial and venous flow. The left ovary measures 3.1 x 1.8 x 2.0 cm and appears normal with follicles as expected. It demonstrates normal arterial and venous flow. Small amount of free fluid is identified in the area scanned. These findings were discussed with Dr. Rutledge shortly after the ultrasound was obtained. IMPRESSION: 1. No definite viable intrauterine is identified at this time. Cystic collection in endometrial cavity may represent small amount of nonspecific fluid, or possibly deformed gestational sac. No pole or yolk sac within this collection. 2. No definite adnexal mass to suggest ectopic . The cystic structure inseparable from the right ovary is more suggestive of corpus luteal cyst rather than ectopic . Overall constellation of findings is concerning for nonviable , but given the early estimated gestational age findings could still represent a viable early and/or early ectopic . Correlation clinically and with serial beta-hCG levels is recommended. Repeat ultrasound may be obtained, as clinically indicated. Signed: Bogdan Mcclellan MD Report Verified Date/Time:02/26/2019 13:05:32 Reading Location: [facility] Radiology Reading Room Procedure Note Interface, External Ris In - 02/26/2019 1:07 PM CDT FINAL REPORT Pelvis ultrasound, Clinical History: Positive test, 6 weeks by date Discussion: Sonographic evaluation of the pelvis is performed transabdominally and transvaginally. Jimenes scale, color Doppler, spectral wave form analysis of the ovarian vasculature was performed. The uterus is 8.0 x 4.7 x 5.1 cm and demonstrates homogeneous echotexture, without focal mass. The endometrial echocomplex is thickened and somewhat heterogeneous, measuring up to 2 cm. A small cystic collection is identified in the fundal region of the endometrial cavity. This does not have the appearance of a normal gestational sac. It measures about 0.7 x 0.3 x 1.2 cm. This could represent a deformed gestational sac or small amount of nonspecific fluid. There is no pole or yolk sac within this structure. The right ovary measures 4.5 x 2.1 x 4.5 cm. There is a cystic structure inseparable from the right ovary measuring about 2.3 x 1.4 x 1.6 cm. There is no pole or yolk sac within this structure. There is small amount of debris. There appears to be ovarian tissue surrounding this structure. Overall this is more suggestive of a complex corpus gluteal cyst rather than an ectopic . The right ovary demonstrates normal arterial and venous flow. The left ovary measures 3.1 x 1.8 x 2.0 cm and appears normal with follicles as expected. It demonstrates normal arterial and venous flow. Small amount of free fluid is identified in the area scanned. These findings were discussed with Dr. Rutledge shortly after the ultrasound was obtained. IMPRESSION: 1. No definite viable intrauterine is identified at this time. Cystic collection in endometrial cavity may represent small amount of nonspecific fluid, or possibly deformed gestational sac. No pole or yolk sac within this collection. 2. No definite adnexal mass to suggest ectopic . The cystic structure inseparable from the right ovary is more suggestive of corpus luteal cyst rather than ectopic . Overall constellation of findings is concerning for nonviable , but given the early estimated gestational age findings could still represent a viable early and/or early ectopic . Correlation clinically and with serial beta-hCG levels is recommended. Repeat ultrasound may be obtained, as clinically indicated. Signed: Bogdan Mcclellan MD Report Verified Date/Time: 02/26/2019 13:05:32 Reading Location: [facility] Radiology Reading Room Performing Organization Address City/State/Zipcode Phone Number [employer] * US Endovaginal (02/26/2019 12:00 PM CDT) Specimen Narrative Performed At FINAL REPORT [employer] Pelvis ultrasound, Clinical History: Positive test, 6 weeks by date Discussion: Sonographic evaluation of the pelvis is performed transabdominally and transvaginally. Jimenes scale, color Doppler, spectral wave form analysis of the ovarian vasculature was performed. The uterus is 8.0 x 4.7 x 5.1 cm and demonstrates homogeneous echotexture, without focal mass. The endometrial echocomplex is thickened and somewhat heterogeneous, measuring up to 2 cm. A small cystic collection is identified in the fundal region of the endometrial cavity. This does not have the appearance of a normal gestational sac. It measures about 0.7 x 0.3 x 1.2 cm. This could represent a deformed gestational sac or small amount of nonspecific fluid. There is no pole or yolk sac within this structure. The right ovary measures 4.5 x 2.1 x 4.5 cm. There is a cystic structure inseparable from the right ovary measuring about 2.3 x 1.4 x 1.6 cm. There is no pole or yolk sac within this structure. There is small amount of debris. There appears to be ovarian tissue surrounding this structure. Overall this is more suggestive of a complex corpus gluteal cyst rather than an ectopic . The right ovary demonstrates normal arterial and venous flow. The left ovary measures 3.1 x 1.8 x 2.0 cm and appears normal with follicles as expected. It demonstrates normal arterial and venous flow. Small amount of free fluid is identified in the area scanned. These findings were discussed with Dr. Rutledge shortly after the ultrasound was obtained. IMPRESSION: 1. No definite viable intrauterine is identified at this time. Cystic collection in endometrial cavity may represent small amount of nonspecific fluid, or possibly deformed gestational sac. No pole or yolk sac within this collection. 2. No definite adnexal mass to suggest ectopic . The cystic structure inseparable from the right ovary is more suggestive of corpus luteal cyst rather than ectopic . Overall constellation of findings is concerning for nonviable , but given the early estimated gestational age findings could still represent a viable early and/or early ectopic . Correlation clinically and with serial beta-hCG levels is recommended. Repeat ultrasound may be obtained, as clinically indicated. Signed: Bogdan Mcclellan MD Report Verified Date/Time:02/26/2019 13:05:32 Reading Location: [facility] Radiology Reading Room Procedure Note Interface, External Ris In - 02/26/2019 1:07 PM CDT FINAL REPORT Pelvis ultrasound, Clinical History: Positive test, 6 weeks by date Discussion: Sonographic evaluation of the pelvis is performed transabdominally and transvaginally. Jimenes scale, color Doppler, spectral wave form analysis of the ovarian vasculature was performed. The uterus is 8.0 x 4.7 x 5.1 cm and demonstrates homogeneous echotexture, without focal mass. The endometrial echocomplex is thickened and somewhat heterogeneous, measuring up to 2 cm. A small cystic collection is identified in the fundal region of the endometrial cavity. This does not have the appearance of a normal gestational sac. It measures about 0.7 x 0.3 x 1.2 cm. This could represent a deformed gestational sac or small amount of nonspecific fluid. There is no pole or yolk sac within this structure. The right ovary measures 4.5 x 2.1 x 4.5 cm. There is a cystic structure inseparable from the right ovary measuring about 2.3 x 1.4 x 1.6 cm. There is no pole or yolk sac within this structure. There is small amount of debris. There appears to be ovarian tissue surrounding this structure. Overall this is more suggestive of a complex corpus gluteal cyst rather than an ectopic . The right ovary demonstrates normal arterial and venous flow. The left ovary measures 3.1 x 1.8 x 2.0 cm and appears normal with follicles as expected. It demonstrates normal arterial and venous flow. Small amount of free fluid is identified in the area scanned. These findings were discussed with Dr. Rutledge shortly after the ultrasound was obtained. IMPRESSION: 1. No definite viable intrauterine is identified at this time. Cystic collection in endometrial cavity may represent small amount of nonspecific fluid, or possibly deformed gestational sac. No pole or yolk sac within this collection. 2. No definite adnexal mass to suggest ectopic . The cystic structure inseparable from the right ovary is more suggestive of corpus luteal cyst rather than ectopic . Overall constellation of findings is concerning for nonviable , but given the early estimated gestational age findings could still represent a viable early and/or early ectopic . Correlation clinically and with serial beta-hCG levels is recommended. Repeat ultrasound may be obtained, as clinically indicated. Signed: Bogdan Mcclellan MD Report Verified Date/Time: 02/26/2019 13:05:32 Reading Location: [facility] Radiology Reading Room Performing Organization Address City/State/Zipcode Phone Number GE RIS * Progesterone (02/16/2019 1:34 PM CDT) Only the most recent of 2 results within the time period is included. Progesterone 18.3 ng/mL [facility] 1 Comment: Follicular phase 0.1 - 0.9 Luteal phase 1.8 -23.9 Ovulation phase0.1 -12.0 First dyjgpcdgv94.0 -44.3 Second trimester 25.4 -83.3 Third sebckvrtr48.7 - 214.0 Postmenopausal 0.0 - 0.1 Specimen Blood Narrative Performed At Performed at:[address] [place] [id number] Investment Associate: James Olivarez MD, Phone:[phone] Performing Organization Address [facility] Phone Number [facility] * TSH (02/16/2019 1:34 PM CDT) Only the most recent of 5 results within the time period is included. TSH 3.510 0.450 - 4.50 uIU/mL [facility] 1 Specimen Blood Narrative Performed At Specimen Comment: A courtesy copy of this report has been sent to [facility] Specimen Comment: [facility]. Performed at:[address] [place], [place] [id number] Investment Associate: James Olivarez MD, Phone:[phone] Performing Organization Address [facility] Phone Number [facility] * T4, free (02/16/2019 1:34 PM CDT) Only the most recent of 4 results within the time period is included. T4,Free(Direct) 1.78 (H) 0.82 - 1.77 ng/dL [facility] 1 Thyroxine (T4) 11.1 4.5 - 12.0 ug/dL [facility] 1 Specimen Blood Narrative Performed At Specimen Comment: A courtesy copy of this report has been sent to [facility] Specimen Comment: [facility]. Performed at:[address] [place], [place] [id number] Investment Associate: James Olivarez MD, Phone:[phone] Performing Organization Address City/State/Zipcode Phone Number [facility] * POCT OB Urine Dipstick (02/16/2019 11:59 AM CDT) Color, UA Yellow Light Yellow, Yellow Clarity, UA Clear Clear Glucose Urine, POC Negative Negative Bilirubin Urine, POC Negative Negative Ketones Urine, POC Negative Negative Specific [place] Urine, 1.010 SG Ratio 1.005 SG Ratio, 1.010 SG POC Ratio, 1.015 SG Ratio, 1.020 SG Ratio, 1.025 SG Ratio, 1.030 SG Ratio Blood Urine, POC Negative Negative pH Urine, POC 7.0 pH units 5.0 pH units, 5.5 pH units, 6.0 pH units, 6.5 pH units, 7.0 pH units, 7.5 pH units, 8.0 pH units Protein Urine, POC Negative Negative Urobilinogen Urine, POC 0.2 mg/dL 0.2 mg/dL, 1 mg/dL Leukocyte Esterase Urine, Negative Negative POC Nitrite Urine, POC Negative Negative Specimen * POCT , urine (02/16/2019 11:52 AM CDT) Only the most recent of 2 results within the time period is included. Test Urine, POC Positive Control line present?, Yes POC Background clear?, POC Yes UPT Cassette Lot #, POC [id number] UPT Cassette Expiration [id number] Date, POC Specimen * TVP Follow-Up (02/05/2019 10:12 AM CDT) Only the most recent of 3 results within the time period is included. Narrative Performed At [facility] FOLLICLE ULTRASOUND REPORT Date performed: 02/04/19 LMP:01/08/19 Chart day: Endometrium: 1.2 cm Right ovary : 4.1 x 2.6 x 2.9 cm #1: corpus #2: Left ovary: 2.9 x 2.2 x 2.2 cm #1: #2: Comments: * PROGESTERONE (12/28/2018 9:16 AM TRANSCRIPTION TYPIST) Progesterone, Serum 1,590 ng/dL [facility] Comment: Reference Range: Adult Females Cycle DaysRange 1 -6<10 - 17 7 - 12<10 - 135 13 - 15<10 - 1563 16 - 28<10 - 2555 Post Menopausal<10 Note: Luteal progesterone peaked from 350 to 3750 ng/dL on days ranging from 17 to 23. Specimen Narrative Performed At Performed at: - [facility] [address] [place], [place] [id number] Investment Associate: Milan Bryant MD, Phone:[phone] Performing Organization Address [facility] Phone Number [facility] * Vitamin D 25 hydroxy (12/18/2018 10:23 AM TRANSCRIPTION TYPIST) Only the most recent of 2 results within the time period is included. Vitamin D, 25-Hydroxy 26.3 (L) 30.0 - 100.0 ng/mL [facility] 1 Comment: Vitamin D deficiency has been defined by the [place] of Medicine and an Endocrine Society practice guideline as a level of serum 25-OH vitamin D less than 20 ng/mL (1,2). The Endocrine Society went on to further define vitamin D insufficiency as a level between 21 and 29 ng/mL (2). 1. IOM ([place] of Medicine). 2010. Dietary reference intakes for calcium and D. [place]: The National Academies Press. 2. Mariaelena MF, Sigrid OAKLEY, Milka ARAIZA, et al. Evaluation, treatment, and prevention of vitamin D deficiency: an Endocrine Society clinical practice guideline. JCEM. 2010; 96(7):1911-30. Specimen Blood Narrative Performed At Performed at: [facility] [employer] [place], [place] [id number] Investment Associate: James Olivarez MD, Phone:[phone] Performing Organization Address [facility] Phone Number [facility] 1 * T3, free (12/18/2018 10:23 AM TRANSCRIPTION TYPIST) Triiodothyronine,Free,Ser 3.3 2.0 - 4.4 pg/mL [facility] 1 um Specimen Blood Narrative Performed At Performed at: [facility] [address] [place], [place] [id number] Investment Associate: James Olivarez MD, Phone:[phone] Performing Organization Address [facility] Phone Number [facility] * Prolactin (11/16/2018 11:47 AM TRANSCRIPTION TYPIST) Prolactin 13.3 4.8 - 23.3 ng/mL [facility] 1 Specimen Blood Narrative Performed At Performed at: - [id number] Investment Associate: James Olivarez MD, Phone:[phone] Performing Organization Address [facility] Phone Number [facility] 1 * DHEA Sulfate (11/16/2018 11:47 AM TRANSCRIPTION TYPIST) DHEA-Sulfate 272.9 84.8 - 378.0 ug/dL [facility] 1 Specimen Blood Narrative Performed At Performed at: - [facility] [place], [id number] Investment Associate: James Olivarez MD, Phone:[phone] Performing Organization Address [facility] Phone Number [facility] 1 * Androstenedione (11/16/2018 11:47 AM TRANSCRIPTION TYPIST) Androstenedione LCMS 123 41 - 262 ng/dL [facility] Comment: This test was developed and its performance characteristics determined by [employer]. It has not been cleared or approved by the Food and Drug Administration. Specimen Blood Narrative Performed At Performed at: [facility] [address] [place], [id number] Investment Associate: Silas Orellana MD, Phone:[phone] Performing Organization Address [facility] Phone Number [facility] 1 * CBC W/ PLT COUNT AUTO DIFFERENTIAL (11/16/2018 11:47 AM TRANSCRIPTION TYPIST) WBC 6.7 3.4 - 10.8 x10E3/uL [facility] [...] 1 Specimen Blood Narrative Performed At Performed at: - [id number] Investment Associate: James Olivarez MD, Phone:[phone] Performing Organization Address [facility] Phone Number [facility] * Testosterone, free + total (11/16/2018 11:47 AM TRANSCRIPTION TYPIST) Testosterone, Serum 36 8 - 48 ng/dL [facility] 1 Free Testosterone(Direct) 1.4 0.0 - 4.2 pg/mL [facility] 2 Specimen Blood Narrative Performed At Performed at: - [facility] [place], [id number] Investment Associate: James Olivarez MD, Phone:[phone] Performed at: [id number] Investment Associate: Silas Orellana MD, Phone:[phone] Performing Organization Address [facility] Phone Number [facility] 2 * SPECIMEN STATUS (09/02/2018 10:49 AM CDT) Specimen Status Comment [facility] 1 Comment: Written Authorization Written Authorization Written Authorization Received. Authorization received from PARISA RUTLEDGE 09-08-2018 Logged by Nirmala Bland Specimen Narrative Performed At Performed at:01 [facility] [address] [place], [id number] Investment Associate: James Olivarez MD, Phone:[phone] Performing Organization Address [facility] Phone Number [facility] * Thyroid peroxidase (TPO) antibody (09/02/2018 10:49 AM CDT) Thyroid Peroxidase (TPO) 167 (H) 0 - 34 IU/mL [facility] 1 Ab Specimen Narrative Performed At Performed at:01 - [facility] [address] [place], [id number] Investment Associate: James Olivarez MD, Phone:[phone] Performing Organization Address [facility] Phone Number [facility] 1 * Anti-thyroglobulin antibody (09/02/2018 10:49 AM CDT) Thyroglobulin Ab <1.0Comment: Thyroglobulin 0.0 - 0.9 IU/mL [facility] 1 Antibody measured by [facility] Methodology Specimen Narrative Performed At Performed at:01 - [facility] [address] [place], [id number] Investment Associate: James Olivarez MD, Phone:[phone] Performing Organization Address [facility] Phone Number [facility] 1 * PAP IG CT-NG RFX HPV ASCU (08/28/2018) Pap Negative for intraephithelial EXTERNAL LAB lesion or malignancy Narrative Performed At Performing Organization Address City/[facility] Phone Number EXTERNAL LAB * US renal complete (08/18/2018 2:30 PM CDT) Specimen Narrative Performed At FINAL REPORT [facility] History: Hematuria. FINDINGS: Correlation is made [...] September 2016 has resolved. Signed: Melisa Mckeon MD Report Verified Date/Time:08/18/2018 14:27:54 Reading Location: [facility] Radiology Reading Room Procedure Note Interface, External [...] September 2016 has resolved. Signed: Melisa Mckeon MD Report Verified Date/Time: 08/18/2018 14:27:54 Reading Location: [facility] Radiology Reading Room Performing Organization Address City/State/Zipcode Phone Number GE RIS after 03/06/2018 Insurance Payer Benefit Subscriber ID Type Phone Address Plan / Group AETNA - [employer] C[employer] AETNA HMO xxxxxxxxxx HMO/POS POS QPOS Advance Directives For more information, please contact: [facility] [address] [place] [address] Date Inactivated Comments Code Status Date Activated 03/03/2019 11:15 AM Full Code 03/02/2019 7:31 PM This code status was determined by: Patient 12/02/2016 4:05 PM Full Code 11/29/2016 12:59 [...]
[2019-03-07 12:10] LABS: BASOPHILS # (AUTO) 0.1 (0.0-0.1); BASOPHILS % 0.7 % (0.0-1.0); EOSINOPHILS # (AUTO) 0.2 (0.0-0.4); EOSINOPHILS % 2.2 % (0.0-6.0); HEMATOCRIT 39.5 % (34.2-44.1); HEMOGLOBIN 13.6 g/dL (12.0-16.0); LYMPHOCYTES # (AUTO) 2.2 (1.0-3.2); LYMPHOCYTES % 26.5 % (18.0-39.1); MEAN CORPUSCULAR HEMOGLOBIN 30.4 pg (28-32); MEAN CORPUSCULAR HGB CONC 34.4 g/dL (31-35); MEAN CORPUSCULAR VOLUME 88.2 fL (81-99); MONOCYTES # (AUTO) 0.7 (0.2-0.8); NEUTROPHILS # (AUTO) 5.1 (2.1-6.9); NEUTROPHILS % 62.2 % (38.7-80.0); PLATELET COUNT 390 x10e3/uL (140-360); RED BLOOD COUNT 4.48 x10e6/uL (3.6-5.1)
[2019-03-07 12:23] LABS: INR 0.93; PARTIAL THROMBOPLASTIN TIME 28.1 seconds (23.8-35.5)
[2019-03-07] MEDS ORDERED: SODIUM CHLORIDE 0.9% 1000ML 1,000 ML IV STA (12:31)
[2019-03-07] MEDS ORDERED: KETOROLAC TROMETHAMINE 30 MG/ML VIAL IV NR (12:31)
[2019-03-07 12:34] LABS: ALANINE AMINOTRANSFERASE 10 IU/L (0-55); ALBUMIN/GLOBULIN RATIO 1.1 (0.8-2.0); ALKALINE PHOSPHATASE 61 IU/L (40-150); ANION GAP 11.7 mmol/L (8-16); BLOOD UREA NITROGEN 9 mg/dL (7-26); BUN/CREATININE RATIO 12 (6-25); CALCIUM 9.6 mg/dL (8.4-10.2); CARBON DIOXIDE 25 mmol/L (22-29); CHLORIDE 106 mmol/L (98-107); CREATININE, SERUM 0.77 mg/dL (0.57-1.11); EST GLOMERULAR FILTRATION RATE > 60 ML/MIN (60-); GLUCOSE 100 mg/dL (74-118); POTASSIUM 3.7 mmol/L (3.5-5.1); SODIUM 139 mmol/L (136-145)
[2019-03-07] MEDS ORDERED: SODIUM CHLORIDE 0.9% 1000ML 1,000 ML ONE (12:35)
[2019-03-07] MEDS ORDERED: KETOROLAC TROMETHAMINE 30 MG/ML VIAL ONE (12:36)
[2019-03-07 12:40] LABS: HCG,QUANTITATIVE 359.46 mIU/mL (0-10)
[2019-03-07 12:44] LABS: COLOR,URINE RED (YELLOW)
[2019-03-07 12:45] LABS: BACTERIA,URINE MODERATE /HPF; BILIRUBIN,URINE NEGATIVE (NEGATIVE); CLARITY,URINE CLOUDY (CLEAR); EPITHELIAL CELLS,URINE FEW /LPF; KETONES,URINE NEGATIVE (NEGATIVE); LEUKOCYTE ESTERASE ,URINE NEGATIVE (NEGATIVE); NITRITE,URINE NEGATIVE (NEGATIVE); PROTEIN,URINE DIPSTICK 2+ (NEGATIVE); RBC,URINE >50 /HPF (0-5); URINE UROBILINOGEN 0.2 mg/dL (0.2 - 1)
[2019-03-07] MEDS ORDERED: CEFTRIAXONE SOD 1 GM VIAL IV ONE (13:00)
--- NOTE | 2019-03-07 13:03 | NUR ---
CALLED FOR ETA OF ULTRASOUND. THEY WILL PAGE TEXT FOR LOCATION AND ETA
--- NOTE | 2019-03-07 13:57 | Diagnostic Imaging Report ---
EXAMINATION: CT of the abdomen and pelvis with contrast. TECHNIQUE: Spiral CT images of the abdomen and pelvis were performed from the lung bases to the lesser trochanters after the intravenous administration of 100 cc of Isovue 370 and the oral administration of water. Coronal and sagittal reformatted images were obtained. COMPARISON: CT abdomen and pelvis without contrast 01/10/2019 CLINICAL HISTORY:Status post ectopic with right partial tubal removal, syncopal episode DISCUSSION: ABDOMEN/PELVIS: LOWER THORAX:Unremarkable. HEPATOBILIARY: No focal hepatic lesions. No intra or extrahepatic biliary ductal dilation. GALLBLADDER: No radio-opaque stones or sludge. No wall thickening. SPLEEN: No splenomegaly. PANCREAS: No focal masses or ductal dilatation. ADRENALS: No adrenal nodules. KIDNEYS/URETERS: No hydronephrosis, stones, or solid mass lesions. PELVIC ORGANS/BLADDER: Bladder is unremarkable. Moderate amount of fluid in the endometrial cavity. Right ovarian corpus luteum cyst. Left ovary is unremarkable. No adnexal masses. PERITONEUM/RETROPERITONEUM: Trace free fluid in the pelvic cul-de-sac. LYMPH NODES: No intra-abdominal, retroperitoneal, pelvic or inguinal lymphadenopathy. VESSELS: The celiac trunk,superior and inferior mesenteric and bilateral renal arteries are patent The portal, superior mesenteric and splenic veins are patent. GI TRACT: No bowel dilation or evidence of obstruction. BONES AND SOFT TISSUE: No aggressive lytic lesions. No soft tissue abnormalities. IMPRESSION: 1. No acute abdominopelvic abnormalities. 2. Moderate amount of fluid in the endometrial cavity. Trace free fluid in the pelvic cul-de-sac, which is likely physiological. Signed by: Dr. Harjinder Arshad M.D. on 03/07/2019 1:54 PM
[2019-03-07] MEDS ORDERED: SODIUM CHLORIDE 0.9% 50ML 50 ML ONE (14:00)
--- NOTE | 2019-03-07 14:00 | Diagnostic Imaging Report ---
EXAM: Transabdominal and Transvaginal Pelvic Ultrasound INDICATION: ^vag bleed ^[id number] ^[id number] COMPARISON: CT abdomen and pelvis performed same date, CT abdomen and pelvis 01/10/2019 TECHNIQUE: Grayscale transverse and sagittal transabdominal and transvaginal images were obtained of the pelvis. Transvaginal imaging was medically necessary to better evaluate the endometrium. CLINICAL HISTORY: 29 year old G2, P1; last menstrual period: 01/2019. FINDINGS: Uterus: Orientation: Normal Size: 8.2 x 3.8 x 5.2 cm, Normal Mass: None Cervix: Nabothian cysts Endometrium: Thickness: 0.4 cm, Normal. Appearance: Homogeneous echotexture without focal thickening. Right ovary: Size: 2.9 x 2.1 x 2.2 cm Mass/Cyst: 1.1 x 0.8 x 0.9 cm anechoic follicle Left ovary: Size: 3.7 x 2.2 x 2.2 cm Mass/Cyst: None Adnexa: Normal Cul-de-sac: Small amount of free fluid in the pelvic cul-de-sac. IMPRESSION: 1. Essentially unremarkable pelvic ultrasound. Signed by: Dr. Harjinder Arshad M.D. on 03/07/2019 1:57 PM
[2019-03-07] MEDS ORDERED: IOPAMIDOL 370 MG/ML 200 ML INFUS..BTL INJ ONE (14:01)
== END 2019-03-07 14:37 | disposition home or self-care (01) ==
LOC: ER 11:27
DX: R10.33 Periumbilical pain (principal); N93.8 Other specified abnormal uterine and vaginal bleeding; J45.909 Unspecified asthma, uncomplicated; E03.9 Hypothyroidism, unspecified; Z87.442 Personal history of urinary calculi
CPT/HCPCS: 36415; 74177; 76830; 80053; 81001; 84702; 85025; 85610; 85730; 86850; 86870; 86880; 86900; 86905; 87086; 99001; 99284; J0696; J1885; J7030; Q9967

== ENCOUNTER 2019-05-13 14:37 | Emergency (ER) | payer OTHER ==
[~2019-05-13] VITALS: Ht 170.2 cm; Wt 78.2 kg
--- OUTSIDE RECORDS SUMMARY | 2019-05-13 14:40 | XMS REPORT | Clinical Summary ---
Author Author ANN [facility] [email or web address] Address Unknown Phone Unavailable Care Team Providers Care Technology Engineer Name Role Phone Parisa Rutledge MD PCP Allergies No Known Allergies Medications End Date Status Medication Sig Dispensed Refills Start Date Active cholecalciferol, vitamin Take by 0 D3, 2,000 unit Cap mouth. Active levothyroxine (SYNTHROID, 2 LEVOTHROID) 100 MCG 9 tablet Active doxycycline (VIBRAMYCIN) One po bid 6 capsule 0 100 MG capsule starting the 9 night before the procedure. Active progesterone (PROMETRIUM) Two po qhs x 20 capsule 3 200 MG capsule 10 days each 9 month as directed. 03/18/2019 Discontinued vitamin Take 1 tablet 0 w/dgujdvj-vjcj-ikestt by mouth ( PLUS) 27 mg daily. iron- 1 mg Tab 08/13/2018 sertraline (ZOLOFT) 50 MG Take 1 [...] tablet TABLET(75 9 MCG) BY MOUTH DAILY 03/18/2019 Discontinued metFORMIN (GLUCOPHAGE-XR) 2 500 MG 24 hr tablet 9 02/16/2019 Discontinued progesterone (PROMETRIUM) Two po qhs x 20 capsule 3 200 MG capsule 10 days each 9 month as directed. 03/03/2019 Discontinued progesterone (PROMETRIUM) Two po qhs. 60 capsule 3 200 MG capsule 9 03/13/2019 ibuprofen (ADVIL,MOTRIN) Take 1 tablet 40 tablet 0 800 MG tablet (800 mg 9 total) by mouth every 6 (six) hours as needed for Pain for up to 10 days. 03/18/2019 Discontinued HYDROcodone-acetaminophen One po every 20 tablet 0 (NORCO 5-325) 5-325 mg 6 hours prn 9 per tablet pain. 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 Resolved Problems Problem Noted Date Resolved Date Thyroid disorder 04/17/2016 12/18/2018 Overview: No current meds Encounters Care Team Description Date Type Specialty Parisa Rutledge MD Irregular menstrual cycle (Primary Dx) 04/21/2019 Orders Only Obstetrics and Gynecology Parisa Rutledge MD History of ectopic (Primary Dx); Pauline's thyroiditis; Procreative counseling and advice using natural family planning; Irregular menstrual cycle 04/20/2019 Office Visit Obstetrics and Gynecology Parisa Rutledge MD Dysuria (Primary Dx); Postop check 03/18/2019 Office Visit Obstetrics and Gynecology Parisa Rutledge MD Advice Only 03/16/2019 Telephone Obstetrics and Parisa Ruelas MD 03/16/2019 Refill Obstetrics trudy Gynecology Parisa Rutledge MD Ectopic , unspecified location, unspecified whether intrauterine present (Primary Dx) 03/15/2019 Orders Only Obstetrics and Gynecology Holden Loaiza MD , location unknown (Primary Dx) 03/13/2019 Emergency Emergency Medicine 03/13/2019 Travel Parisa Rutledge MD 03/13/2019 Orders Only Obstetrics and Gynecology Parisa Rutledge MD Amenorrhea (Primary Dx) 03/12/2019 Orders Only Obstetrics and Gynecology Parisa Rutledge MD Amenorrhea (Primary Dx) 03/12/2019 Orders Only Obstetrics and Gynecology Parisa Rutledge MD Advice Only 03/05/2019 Telephone [...] intrauterine (Primary Dx); Abnormal human chorionic gonadotropin (hCG); Amenorrhea; Ectopic , unspecified location, unspecified whether intrauterine present 03/02/2019 Office Visit Obstetrics and Gynecology 03/02/2019 [...] Rutledge MD Advice Only 02/19/2019 Telephone Obstetrics Parisa Rowland MD Amenorrhea (Primary Dx) 02/17/2019 Orders Only Obstetrics and Parisa Ruelas MD Vaginal Bleeding 02/17/2019 Telephone Obstetrics and Parisa Ruelas MD Amenorrhea (Primary Dx); White coat syndrome with high blood pressure without hypertension; Pauline's thyroiditis; History of nephrolithiasis; History of irregular menstrual cycles 02/16/2019 Office Visit Obstetrics and Parisa Ruelas MD 02/16/2019 Orders Only Obstetrics Parisa Rowland MD New OB intake 02/15/2019 Telephone Obstetrics and Gynecology Bozena Hudson MD Cyst of ovary, unspecified laterality (Primary Dx) 02/04/2019 Office Visit Obstetrics and Parisa Ruelas MD History of ovarian cyst (Primary Dx); Pauline's thyroiditis; History of irregular menstrual cycles 01/29/2019 Office Visit Obstetrics Parisa Rowland MD Irregular periods/menstrual cycles (Primary Dx) 01/12/2019 Office Visit Obstetrics and Parisa Ruelas MD Advice Only 01/12/2019 Telephone Obstetrics and Parisa Ruelas MD 01/11/2019 Refill Obstetrics and Parisa Ruelas MD Appointment 01/07/2019 Telephone Obstetrics Parisa Rowland MD Referral 12/30/2018 Telephone Obstetrics and Parisa Ruelas MD 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) 12/29/2018 Orders Only Obstetrics Parisa Rowland MD Disease of thyroid gland (Primary Dx); Low vitamin D level; Hormone disorder; Pauline's thyroiditis 12/18/2018 Office Visit Obstetrics and Parisa Ruelas MD Referral 11/20/2018 Telephone Obstetrics and Pairsa Ruelas MD Advice Only 11/18/2018 Telephone Obstetrics and Gynecology Parisa Rutledge MD Other fatigue (Primary Dx); Irregular menstrual cycle; History of irregular menstrual bleeding; Pauline's thyroiditis; Procreative counseling and advice using natural family planning; Other chronic back pain 11/16/2018 Office Visit Obstetrics and Parisa Ruelas MD 11/13/2018 Orders Only Obstetrics and Parisa Ruelas MD 11/12/2018 Refill Obstetrics and Parisa Ruelas MD 10/15/2018 Orders Only Obstetrics and Parisa Ruelas MD Thyroid disorder (Primary Dx); Pauline's thyroiditis; Ectopic , unspecified location, unspecified whether intrauterine present 09/17/2018 Office Visit Obstetrics and Parisa Ruelas MD Advice Only 09/07/2018 Telephone Obstetrics and Gynecology Dinah Donato, [facility] 09/04/2018 Abstract Obstetrics and Gynecology Parisa Rutledge MD 09/02/2018 Orders Only Obstetrics and Parisa Ruelas MD Advice Only 09/02/2018 Telephone Obstetrics and Gynecology Parisa Rutledge MD Thyroid condition (Primary Dx) 09/02/2018 Orders Only Obstetrics Parisa Rowland MD 08/31/2018 Orders Only Obstetrics and Parisa Ruelas MD Thyroid disorder (Primary Dx); Well woman exam with routine gynecological exam 08/28/2018 Office Visit Obstetrics and Gynecology Leon Taylor MD Hematuria, unspecified type (Primary Dx) 08/18/2018 Office Visit Urology Leon Taylor MD Hematuria, unspecified type 08/18/2018 Hospital Encounter Leon Taylor MD 08/18/2018 Outside Orders after 05/12/2018 Immunizations Name Dates Previously Given Next Due [...] Vital Signs Time Taken Vital Sign Reading 04/20/2019 10:51 AM CDT Blood Pressure 134/80 04/20/2019 10:51 AM CDT Pulse 84 04/20/2019 10:51 AM CDT Temperature 37 C (98.6 F) 03/13/2019 12:05 PM CDT Respiratory Rate 18 03/13/2019 12:05 PM CDT Oxygen Saturation 98% - Inhaled Oxygen - Concentration 04/20/2019 10:51 AM CDT Weight 80.1 kg (176 lb 9.6 oz) 04/20/2019 10:51 AM CDT Height 167.6 cm (5' 6") 04/20/2019 10:51 AM CDT Body Mass Index 28.5 Plan of Treatment Care Team Description Date Type Specialty Parisa Rutledge MD [facility] [address] [address] [phone] 06/15/2019 Office Visit Obstetrics and Gynecology Procedures Comments Procedure Name Priority Date/Time Associated Diagnosis PROGESTERONE Routine 04/26/2019 Irregular menstrual cycle 11:34 AM CDT PROGESTERONE Routine 04/20/2019 History of ectopic 11:39 AM CDT HCG, QUANTITATIVE, STAT 04/13/2019 Amenorrhea 10:25 AM CDT HCG, QUANTITATIVE, STAT 04/06/2019 Amenorrhea 4:07 PM CDT HCG, QUANTITATIVE, STAT 03/30/2019 Ectopic , 10:04 AM CDT unspecified location, unspecified whether intrauterine present HCG, QUANTITATIVE, STAT 03/19/2019 Ectopic , 9:42 AM CDT unspecified location, unspecified whether intrauterine present URINE CULTURE, ROUTINE AP Routine 03/18/2019 Dysuria 12:27 PM CDT URINALYSIS WITH Routine 03/18/2019 Dysuria MICROSCOPIC IF INDICATED 12:27 PM CDT HCG, QUANTITATIVE, STAT 03/16/2019 Ectopic , 9:31 AM CDT unspecified location, unspecified whether intrauterine present CBC W/PLT COUNT & AUTO STAT 03/13/2019 DIFFERENTIAL 1:18 PM CDT CBC W/PLT COUNT & AUTO STAT 03/13/2019 DIFFERENTIAL 1:18 PM CDT COMPREHENSIVE METABOLIC STAT 03/13/2019 PANEL 12:42 PM CDT HCG, QUANTITATIVE, Routine 03/12/2019 Ectopic , 12:22 PM CDT unspecified location, unspecified whether intrauterine present HCG, QUANTITATIVE, Routine 03/11/2019 Ectopic , 9:44 AM CDT unspecified location, unspecified whether intrauterine present HCG, QUANTITATIVE, Routine 03/05/2019 Ectopic , 1:08 [...] Needs IN [place] CONFIRMED WITH RAMOS AT [facility],OPERATIVE 03/02/2019 Ectopic , 7:00 PM CDT unspecified location, unspecified whether intrauterine present Special Needs IN [place] CONFIRMED WITH RAMOS AT [facility],ECTOPIC 03/02/2019 Ectopic , REMOVAL 7:00 PM CDT unspecified location, unspecified whether intrauterine present Special Needs IN [place] CONFIRMED WITH RAMOS AT [facility] CBC W/PLT COUNT & AUTO STAT 03/02/2019 [...] periods/menstrual cycles PROGESTERONE Routine 12/28/2018 9:16 AM [facility] VITAMIN D, 25-HYDROXY Routine 12/18/2018 Low vitamin D level 10:23 AM [facility] T3, FREE Routine 12/18/2018 Disease of thyroid gland 10:23 AM [facility] T4, FREE Routine 12/18/2018 Disease of thyroid gland 10:23 AM [facility] TSH Routine 12/18/2018 Disease of thyroid gland 10:23 AM [facility] POCT , URINE Routine 11/16/2018 History of irregular 11:51 AM [facility] menstrual bleeding DHEA SULFATE Routine 11/16/2018 Irregular menstrual cycle 11:47 AM [facility] T4, FREE Routine 11/16/2018 Irregular menstrual cycle 11:47 AM [facility] PROLACTIN Routine 11/16/2018 Irregular menstrual cycle 11:47 AM [facility] VITAMIN D, 25-HYDROXY Routine 11/16/2018 Other fatigue 11:47 AM [facility] CBC W/PLT COUNT & AUTO Routine 11/16/2018 Irregular menstrual cycle DIFFERENTIAL 11:47 AM [facility] PROGESTERONE Routine 11/16/2018 Irregular menstrual cycle 11:47 AM [facility] ANDROSTENEDIONE Routine 11/16/2018 Irregular menstrual cycle 11:47 AM [facility] TESTOSTERONE, FREE + Routine 11/16/2018 Irregular menstrual cycle TOTAL 11:47 AM [facility] TSH Routine 11/16/2018 Irregular menstrual cycle 11:47 AM [facility] TSH Routine 10/14/2018 Thyroid disorder 10:16 AM [facility] T4, FREE Routine 10/14/2018 Thyroid disorder 10:16 AM [facility] SPECIMEN STATUS Routine 09/02/2018 10:49 AM CDT ANTI-THYROGLOBULIN Routine 09/02/2018 ANTIBODY 10:49 AM CDT THYROID PEROXIDASE (TPO) Routine 09/02/2018 ANTIBODY 10:49 AM CDT TSH Routine 08/31/[address]-NG RFX HPV ASCU AP Routine 08/28/2018 US RENAL COMPLETE STAT 08/18/2018 Hematuria, unspecified 2:30 PM CDT type after 05/12/2018 Results * Progesterone (04/26/2019 11:34 AM CDT) Only the most recent of 4 results within the time period is included. Progesterone 15.5 ng/mL [facility] 1 Comment: Follicular phase 0.1 - 0.9 Luteal phase 1.8 -23.9 Ovulation phase0.1 -12.0 First qdmemqjog41.0 -44.3 Second trimester 25.4 -83.3 Third fzlugvhkq25.7 - 214.0 Postmenopausal 0.0 - 0.1 Specimen Blood Narrative Performed At Performed at: [facility] [address] [place], [id number] Project Manager Industrial: James Olivarez MD, Phone:[phone] Performing Organization Address City/State/Zipcode Phone Number [facility] * hCG, quantitative, (04/13/2019 10:25 AM CDT) Only the most recent of 14 results within the time period is included. hCG,Beta <1 mIU/mL [facility] 1 Subunit,Qnt,Serum Comment: Female (Non-)0 - 5 (Pos tmenopausal)0 - 8 Female () Weeks of Gestation 3 6 -71 4 10 - 750 52 17 -7138 61 58 - 02724 7 [phone] -[phone] 034566 -029087 [phone] -[phone] 10 79568 -[phone] 12 44363 -513192 14 61547 - 70445 15 24832 - 67004 16 0359 - 48666 17 5117 - 44352 18 8777 - 25761 [employer] ECLIA methodology Specimen Blood Narrative Performed At Performed at:[address] [place] [address] [facility] Team[id number] Project Manager Industrial: James Olivarez MD, Phone:[phone] Performing Organization Address [facility] Phone Number [facility] * Urinalysis with Microscopic If Indicated (03/18/2019 12:27 PM CDT) Specific Mcdowell, UA 1.008 1.005 - 1.03 [facility] 1 pH, UA 7.0 5.0 - 7.5 [facility] 1 Color, UA Yellow Yellow [facility] 1 Appearance Clear Clear [facility] 1 WBC Esterase Negative Negative [facility] 1 Protein, UA Negative Negative/T [facility] 1 Glucose, Urine Negative Negative [facility] 1 Ketones, UA Negative Negative [facility] 1 Blood, UA Negative Negative [facility] 1 Bilirubin, UA Negative Negative [facility] 1 Urobilinogen,Semi-Qn 0.2 0.2 - 1.0 mg/dL [facility] 1 Nitrite, UA Negative Negative [facility] 1 Microscopic Examination CommentComment: Microscopic [facility] 1 not indicated and not performed. Specimen Narrative Performed At Performed at:[address] [place] [address] [facility] [employer] [place], [id number] Project Manager Industrial: James Olivarez MD, Phone:[phone] Performing Organization Address [facility] [place] Phone Number [employer] [employer]ing Team [facility] * URINE CULTURE, ROUTINE ([facility] Only) (03/18/2019 12:27 PM CDT) Urine Culture, Routine Final report [facility] 1 Result 1 Comment [facility] 1 Comment: Mixed urogenital zane Less than 10,000 colonies/mL Specimen Urine (CCMS) Narrative Performed At Performed at:01 - [facility] [address] [facility], [id number] Project Manager Industrial: James Olivarez MD, Phone:[phone] Performing Organization Address [facility] Phone Number [facility] * CBC with platelet count + automated diff (03/13/2019 1:18 PM CDT) Only the most recent of 2 results within the time period is included. WBC 7.8 4.0 - 10.0 K/L [facility] RBC 4.54 4.00 - 5.00 M/L [facility] Hemoglobin 13.3 12.0 - 15.5 GM/DL [facility] Hematocrit 40.4 36.0 - 46.0 % [facility] MCV 89.0 82.0 - 99.0 fL [facility] MCH 29.3 27.0 - 33.0 pg [facility] MCHC 32.9 32.0 - 36.0 GM/DL [facility] RDW 11.9 (L) 12.0 - 15.0 % [facility] Platelets 415 150 - 430 K/CU MM [facility] MPV 9.2 6.0 - 11.5 fL [facility] nRBC 0 0 - 0 /100 WBC [facility] % Neutros 58 % [facility] % Lymphs 27 % [facility] % Monos 12 % [facility] % Eos 2 % [facility] % Baso 1 % [facility] # Neutros 4.51 1.80 - 8.00 K/L [facility] # Lymphs 2.14 1.48 - 4.50 K/L [facility] # Monos 0.96 0.00 - 1.30 K/L [facility] # Eos 0.12 0.00 - 0.50 K/L [facility] # Baso 0.07 0.00 - 0.20 K/L [facility] Immature 0 0 - 0 % [facility] Granulocytes-Relative [facility] Specimen Blood Performing Organization Address [facility] Phone Number [facility] [address] [place] [address] * Comprehensive metabolic panel (03/13/2019 12:42 PM CDT) Protein, Total 8.1Comment: Specimen 6.0 - 8.5 gm/dL [facility] moderately hemolyzed [facility] Albumin 4.4Comment: Specimen 3.5 - 5.0 g/dL [facility] moderately hemolyzed LAB[facility] Alkaline Phosphatase 64 30 - 115 U/L [facility] Total Bilirubin 0.5Comment: Specimen 0.1 - 1.2 mg/dL [facility] moderately hemolyzed LAB[facility] Sodium 137 135 - 148 meq/L [facility] Potassium 4.4Comment: Specimen 3.6 - 5.5 meq/L [facility] moderately hemolyzed [facility] Chloride 102 98 - 106 meq/L [facility] CO2 23 20 - 29 meq/L [facility] BUN 8 (L) 10 - 26 mg/dL [facility] Creatinine 0.75Comment: Specimen 0.50 - 1.20 mg/dL [facility] moderately hemolyzed [facility] Glucose 91 70 - 110 mg/dL [facility] Calcium 9.5 8.5 - 10.5 mg/dL [facility] AST 21Comment: Specimen moderately 5 - 40 U/L [facility] ALT 7Comment: Specimen moderately 5 - 50 U/L [facility] EGFR 93Comment: ESTIMATED GFR IS mL/min/1.73 sq m [facility] NOT ACCURATE CREATININE [facility] CLEARANCE IN PREDICTING GLOMERULAR FILTRATION RATE. ESTIMATED GFR IS NOT APPLICABLE FOR DIALYSIS PATIENTS. Specimen Blood Performing Organization Address City/State/Zipcode Phone Number [facility] [address] [place] [address] * TRANSFUSION SERVICE REPORT - SCAN (03/04/2019 6:05 PM CDT) Only the most recent of 2 results within the time period is included. Narrative Performed At * Antibody identification (03/03/2019 5:00 PM CDT) ANTIBODY ID (SYLVIA) Anti-Bg [facility] [place] Anti-E Comment: Testing performed by: [facility], [address] [place] [address] [place] [address] Antibody Consult SIGNED OUTComment: Anti E [facility] [place] causes RBC injury, transfuse E negative RBCs. History of anti-Bg.Electronic Signature: Mony Zavala M.D. Specimen Performing Organization Address City/State/Zipcode Phone Number [facility] [place] * Tissue Exam (03/02/2019 8:41 PM CDT) Case Report Surgical Pathology [facility] Case: [id number] Authorizing Provider:Parisa Rutledge MD Collected: 03/02/20192040 Ordering Location: [facility] PERIOPERATIVE Received: 03/03/2019 08 SERVICES Pathologist: Abhinav Brewer MD Specimen:RT Fallopian Tube, Right Fallopian Tube DIAGNOSIS RIGHT FALLOPIAN TUBE, [facility] EXCISION: [facility] - ECTOPIC Signing Pathologist Direct Phone Line: [phone] CPT Code(s) SQ/ew [facility] [address] [facility] CLINICAL HISTORY Ectopic [facility] SPECIMEN SOURCE Right fallopian tube [facility] GROSS DESCRIPTION Received in formalin [facility] designated "right fallopian [facility] tube" is a [...] MICROSCOPIC DESCRIPTION Sections from the fallopian [facility] tube reveal a lumen lined by [facility] tubal type epithelium. Detached pieces of chorionic villi are identified mixed with blood clots. Features of malignancy are not identified. SQ/ew Specimen Tissue Narrative Performed At Performing Organization Address [facility]/Zipcode Phone Number [facility] [address] [place] [address] * Type and screen, automated (03/02/2019 6:49 PM CDT) [facility] O POSITIVE [facility] Antibody Screen POSITIVE [facility] Specimen Blood Performing Organization Address City/[facility]/Zipcode Phone Number [facility] [address] [place] [address] HOSPITAL * ABORH, manual (03/02/2019 6:49 PM CDT) ABO Grouping OComment: Testing performed [facility] by: [facility], [address] [place] [id number] Rh Factor POSComment: Testing performed [facility] by: [facility], [address] [place] [address] Specimen Blood Performing Organization Address City/[facility] Phone Number [facility] [address] [place], [place] [address] HOSPITAL * Basic metabolic panel (Na, K+, Cl, CO2, Glu, Ca, BUN, Cr) (03/02/2019 6:49 PM CDT) Sodium 138 135 - 148 meq/L [facility] Potassium 4.3Comment: Specimen 3.6 - 5.5 meq/L [facility] moderately hemolyzed [facility] Chloride 103 98 - 106 meq/L [facility] CO2 20 20 - 29 meq/L [facility] BUN 7 (L) 10 - 26 mg/dL [facility] Creatinine 0.79Comment: Specimen 0.50 - 1.20 mg/dL [facility] moderately hemolyzed [facility] Glucose 88 70 - 110 mg/dL [facility] Calcium 9.1 8.5 - 10.5 mg/dL [facility] EGFR 87Comment: ESTIMATED GFR IS mL/min/1.73 sq m [facility] NOT ACCURATE CREATININE [facility] CLEARANCE IN PREDICTING GLOMERULAR FILTRATION RATE. ESTIMATED GFR IS NOT APPLICABLE FOR DIALYSIS PATIENTS. Specimen Blood Performing Organization Address City/[facility]/Zipcode Phone Number [facility] [address] [place], [place] [address] * TVP - OB transvaginal Ultrasound (03/02/2019 [...] CDT) Specimen Narrative Performed At FINAL REPORT [employer] [facility] Pelvis ultrasound, Clinical History: Positive test, 6 [...] MD Report Verified Date/Time:02/26/2019 13:05:32 Reading Location: [facility] Radiology Reading Room Procedure Note Interface, External [...] Report Verified Date/Time: 02/26/2019 13:05:32 Reading Location: [facility] Radiology Reading Room Performing Organization Address City/State/Zipcode Phone Number [facility] * US Endovaginal (02/26/2019 12:00 PM CDT) Specimen Narrative Performed At FINAL REPORT [facility] Pelvis ultrasound, Clinical History: Positive test, 6 [...] MD Report Verified Date/Time:02/26/2019 13:05:32 Reading Location: [facility] Radiology Reading Room Procedure Note Interface, External [...] Report Verified Date/Time: 02/26/2019 13:05:32 Reading Location: [facility] Radiology Reading Room Performing Organization Address [facility] Phone Number RIS * TSH (02/16/2019 1:34 PM CDT) Only the most recent of 5 results within the time period is included. TSH 3.510 0.450 - 4.50 uIU/mL [facility] 1 Specimen Blood Narrative Performed At Specimen Comment: A courtesy copy of this report has been sent to [facility] Specimen Comment: [facility]. Performed at:[address] [place], [place] [id number] Project Manager Industrial: James Olivarez MD, Phone:[phone] Performing Organization Address [facility] Phone Number [facility] * T4, free (02/16/2019 1:34 PM CDT) Only the most recent of 4 results within the time period is included. T4,Free(Direct) 1.78 (H) 0.82 - 1.77 ng/dL [facility] 1 Thyroxine (T4) 11.1 4.5 - 12.0 ug/dL [facility] 1 Specimen Blood Narrative Performed At Specimen Comment: A courtesy copy of this report has been sent to [facility] Specimen Comment: [facility]. Performed at:01 - [facility] [address], [id number] Project Manager Industrial: James Olivarez MD, Phone:[phone] Performing Organization Address City/State/Zipcode Phone Number [facility] 1 * POCT OB Urine Dipstick (02/16/2019 11:59 AM CDT) Color, UA Yellow Light Yellow, Yellow Clarity, UA Clear Clear Glucose Urine, POC Negative Negative Bilirubin Urine, POC Negative Negative Ketones Urine, POC Negative Negative Specific Mcdowell Urine, 1.010 SG Ratio 1.005 SG Ratio, [...] #2: Comments: * PROGESTERONE (12/28/2018 9:16 AM [facility]) Progesterone, Serum 1,590 ng/dL [facility] 1 Comment: Reference Range: Adult Females Cycle DaysRange 1 -6<10 - 17 7 - 12<10 - 135 13 - 15<10 - 1563 16 - 28<10 - 2555 Post Menopausal<10 Note: Luteal progesterone peaked from 350 to 3750 ng/dL on days ranging from 17 to 23. Specimen Narrative Performed At Performed at: - Bass Manager [facility] [address] [place], [place] [id number] Project Manager Industrial: Milan Bryant MD, Phone:[phone] Performing Organization Address [facility] Phone Number [facility] * Vitamin D 25 hydroxy (12/18/2018 10:23 AM [facility]) Only the most recent of 2 results within the time period is included. Vitamin D, 25-Hydroxy 26.3 (L) 30.0 - 100.0 ng/mL [facility] 1 Comment: Vitamin D deficiency has been defined by the [employer] and an Endocrine Society practice guideline as a level of serum 25-OH vitamin D less than 20 ng/mL (1,2). The Endocrine Society went on to further define vitamin D insufficiency as a level between 21 and 29 ng/mL (2). 1. IOM ([place] of [employer]). 2010. Dietary reference intakes for calcium and D. [place]: The National Academies Press. 2. Mariaelena MF, Sigrid OAKLEY, Milka ARAIZA, et al. Evaluation, treatment, and prevention of vitamin D deficiency: an Endocrine Society clinical practice guideline. JCEM. 2010; 96(7):1911-30. Specimen Blood Narrative Performed At Performed at: - [facility] [place], [id number] Project Manager Industrial: James Olivarez MD, Phone:[phone] Performing Organization Address [facility] [place] Phone Number [facility] 1 * T3, free (12/18/2018 10:23 AM SHORTS SIFTER) Triiodothyronine,Free,Ser 3.3 2.0 - 4.4 pg/mL [facility] 1 um Specimen Blood Narrative Performed At Performed at: - [facility] [place], [id number] Project Manager Industrial: James Olivarez MD, Phone:[phone] Performing Organization Address [facility] [place] Phone Number [facility] 1 * Prolactin (11/16/2018 11:47 AM SHORTS SIFTER) Prolactin 13.3 4.8 - 23.3 ng/mL [facility] 1 Specimen Blood Narrative Performed At Performed at:[id number] Project Manager Industrial: James Olivarez MD, Phone:[phone] Performing Organization Address [facility] [place] Phone Number [facility] 1 * DHEA Sulfate (11/16/2018 11:47 AM SHORTS SIFTER) DHEA-Sulfate 272.9 84.8 - 378.0 ug/dL [facility] 1 Specimen Blood Narrative Performed At Performed at:[id number] Project Manager Industrial: James Olivarez MD, Phone:[phone] Performing Organization Address [facility] [place] Phone Number [facility] 1 * Androstenedione (11/16/2018 11:47 AM SHORTS SIFTER) Androstenedione LCMS 123 41 - 262 ng/dL [facility] 1 Comment: This test was developed and its performance characteristics determined by [facility]. It has not been cleared or approved by the Food and Drug Administration. Specimen Blood Narrative Performed At Performed at:[address] [place] [address] [address] [place], [id number] Project Manager Industrial: Silas Orellana MD, Phone:[phone] Performing Organization Address [facility] [place] Phone Number [facility] 1 * CBC W/ PLT COUNT AUTO DIFFERENTIAL (11/16/2018 11:47 AM SHORTS SIFTER) WBC 6.7 3.4 - 10.8 x10E3/uL [facility] [...] Blood Narrative Performed At Performed at: - [id number] Project Manager Industrial: James Olivarez MD, Phone:[phone] Performing Organization Address [facility] [place] Phone Number [facility] 1 * Testosterone, free + total (11/16/2018 11:47 AM SHORTS SIFTER) Testosterone, Serum 36 8 - 48 ng/dL [facility] 1 Free Testosterone(Direct) 1.4 0.0 - 4.2 pg/mL [facility] 2 Specimen Blood Narrative Performed At Performed at: - Lab[id number] Project Manager Industrial: James Olivarez MD, Phone:[phone] Performed at: - Lab[id number] Project Manager Industrial: Silas Orellana MD, Phone:[phone] Performing Organization Address [facility] [place] Phone Number [facility] 1 [facility] 2 * SPECIMEN STATUS (09/02/2018 10:49 AM CDT) Specimen Status Comment [facility] 1 Comment: Written Authorization Written Authorization Written Authorization Received. Authorization received from PARISA RUTLEDGE 09-08-2018 Logged by Nirmala Bland Specimen Narrative Performed At Performed at:[address] [place] [address] [facility] [address] [place], [place] [id number] Project Manager Industrial: James Olivarez MD, Phone:[phone] Performing Organization Address [facility] [place] Phone Number [facility] 1 * Thyroid peroxidase (TPO) antibody (09/02/2018 10:49 AM CDT) Thyroid Peroxidase (TPO) 167 (H) 0 - 34 IU/mL [facility] 1 Ab Specimen Narrative Performed At Performed at:[id number] Project Manager Industrial: James Olivarez MD, Phone:[phone] Performing Organization Address [facility] Phone Number [facility] 1 * Anti-thyroglobulin antibody (09/02/2018 10:49 AM CDT) Thyroglobulin Ab <1.0Comment: Thyroglobulin 0.0 - 0.9 IU/mL [facility] 1 Antibody measured by [facility] [place] Methodology Specimen Narrative Performed At Performed at:[id number] Project Manager Industrial: James Olivarez MD, Phone:[phone] Performing Organization Address [facility] [place] Phone Number [facility] 1 * PAP IG CT-NG RFX HPV ASCU (08/28/2018) Pap Negative for intraephithelial EXTERNAL LAB lesion or malignancy Narrative Performed At Performing Organization Address City[facility] Phone Number EXTERNAL LAB * US renal complete (08/18/2018 2:30 PM CDT) Specimen Narrative Performed At FINAL REPORT GE RIS History: Hematuria. FINDINGS: Correlation is made with [...] MD Report Verified Date/Time:08/18/2018 14:27:54 Reading Location: [facility] Radiology Reading Room Procedure Note Interface, External [...] Report Verified Date/Time: 08/18/2018 14:27:54 Reading Location: [facility] Radiology Reading Room Performing Organization Address City/State/Zipcode Phone Number GE RIS after 05/12/2018 Insurance Payer Benefit Subscriber ID Type Phone Address Plan / Group AETNA - MGD CARE AETNA HMO xxxxxxxxxx HMO/POS POS QPOS Advance Directives For more information, please contact: [facility] [address] [place] [address] Date Inactivated Comments Code Status [...]
[2019-05-13 16:17] VITALS: BP 112/74
== END 2019-05-13 16:08 | disposition home or self-care (01) ==
LOC: FSED 14:37
DX: R07.89 Other chest pain (principal); J45.909 Unspecified asthma, uncomplicated; E03.9 Hypothyroidism, unspecified
CPT/HCPCS: 93005; 99282